=== PATIENT | male | born 1935 | race African-American/Black ===

== ENCOUNTER 2017-03-28 11:35 | Outpatient (CLI) | payer MEDICARE, OTHER ==
[2017-03-28 19:21] LABS: BASOPHILS % (AUTO) 0.7 %; EOSINOPHILS # (AUTO) 0.1 10^3/uL (0.0-0.7); EOSINOPHILS % (AUTO) 1.7 %; HCT - HEMATOCRIT 41.1 % (42.0-52.0); HGB - HEMOGLOBIN 13.4 g/dL (14.0-18.0); LYMPHOCYTES # (AUTO) 1.6 10^3/uL (1.5-3.5); LYMPHOCYTES % (AUTO) 41.8 %; MEAN CORPUSCULAR HGB CONC 32.7 g/dL (32.0-36.0); MEAN CORPUSCULAR VOLUME 76.4 fL (80.0-94.0); MEAN PLATELET VOLUME 9.3 fL (7.4-11.4); MONOCYTES # (AUTO) 0.6 10^3/uL (0.0-1.0); MONOCYTES % (AUTO) 16.2 %; NEUTROPHILS # (AUTO) 1.5 10^3/uL (1.5-6.6); NEUTROPHILS % (AUTO) 39.6 %; NUCLEATED RED BLOOD CELLS AUTO 0.4 /100WBC; RED BLOOD COUNT 5.38 10^6/uL (4.70-6.10); RED CELL DISTRIBUTION WIDTH 16.2 % (12.0-15.0); UNCORRECTED WHITE BLOOD COUNT 3.8 x10^3/uL; WHITE BLOOD COUNT 3.8 x10^3/uL (4.8-10.8)
[2017-03-28 19:46] LABS: ALBUMIN/GLOBULIN RATIO 0.9 (1.0-2.2); BILIRUBIN,TOTAL 0.5 mg/dL (0.2-1.0); CALCIUM 9.3 mg/dL (8.5-10.3); CREATININE 1.6 mg/dL (0.6-1.2); POTASSIUM 4.2 mmol/L (3.5-5.0); TOTAL PROTEIN 7.9 g/dL (6.7-8.2)
[2017-03-28 20:13] LABS: PLATELET ESTIMATE, MANUAL NORMAL (130-450,000) (NORMAL); PLATELET MORPHOLOGY 2+ GIANT PLATELETS (NORMAL)
== END 2017-03-28 11:36 | disposition home or self-care (01) ==
LOC: LAB.WCP 11:35
PROVIDERS: ATTEND Family Medicine
DX: M31.6 Other giant cell arteritis (principal); D36.0 Benign neoplasm of lymph nodes
CPT/HCPCS: 36415; 80053; 85025; 85651

== ENCOUNTER 2018-04-03 08:00 | Outpatient (CLI) | payer MEDICARE, OTHER ==
[2018-04-03 13:06] LABS: BASOPHILS % (AUTO) 1.2 %; EOSINOPHILS % (AUTO) 1.2 %; HGB - HEMOGLOBIN 12.7 g/dL (14.0-18.0); LYMPHOCYTES # (AUTO) 1.5 10^3/uL (1.5-3.5); LYMPHOCYTES % (AUTO) 44.7 %; MEAN CORPUSCULAR HEMOGLOBIN 25.5 pg (27.0-31.0); MEAN CORPUSCULAR HGB CONC 32.7 g/dL (32.0-36.0); MEAN PLATELET VOLUME 9.3 fL (7.4-11.4); MONOCYTES # (AUTO) 0.4 10^3/uL (0.0-1.0); MONOCYTES % (AUTO) 11.6 %; NEUTROPHILS # (AUTO) 1.3 10^3/uL (1.5-6.6); NEUTROPHILS % (AUTO) 41.3 %; PLT - PLATELET COUNT 152 10^3/uL (130-450); RED BLOOD COUNT 4.98 10^6/uL (4.70-6.10); RED CELL DISTRIBUTION WIDTH 17.1 % (12.0-15.0); WHITE BLOOD COUNT 3.3 x10^3/uL (4.8-10.8)
[2018-04-03 13:35] LABS: PLATELET ESTIMATE, MANUAL NORMAL (130-450,000) (NORMAL); PLATELET MORPHOLOGY 1+ GIANT PLATELETS (NORMAL); RBC MORPHOLOGY (MULTIPLE) NORMAL APPEARANCE (NORMAL)
[2018-04-03 14:00] LABS: ALBUMIN 3.4 g/dL (3.2-5.5); ALBUMIN/GLOBULIN RATIO 0.8 (1.0-2.2); ALKALINE PHOSPHATASE 80 IU/L (42-121); ALT ALANINE AMINOTRANSFERASE 14 IU/L (10-60); AST ASPARTATE AMINOTRANSFERASE 23 IU/L (10-42); BILIRUBIN,TOTAL 0.7 mg/dL (0.2-1.0); BUN - BLOOD UREA NITROGEN 23 mg/dL (6-20); CALCIUM 9.2 mg/dL (8.5-10.3); CARBON DIOXIDE - CO2 28 mmol/L (21-32); CHLORIDE 101 mmol/L (101-111); CHOL/HDL RATIO 3.3 (<5.0); CHOLESTEROL 140 mg/dL; CREATININE 1.5 mg/dL (0.6-1.2); GFR - MDRD 55 (>89); GLUCOSE 103 mg/dL (70-100); HDL CHOLESTEROL 43 mg/dL; LDL CHOLESTEROL,CALCULATED 88 mg/dL; SODIUM 133 mmol/L (135-145); TOTAL PROTEIN 7.9 g/dL (6.7-8.2); VLDL CHOLESTEROL 9 mg/dL
[2018-04-03 14:07] LABS: HB2 TOTAL 13.5 g/dL; HEMOGLOBIN A1C 0.59 g/dL; HEMOGLOBIN A1C % 6.1 % (4.6-6.2)
== END 2018-04-03 08:01 | disposition home or self-care (01) ==
LOC: LAB.WCP 08:00
PROVIDERS: ATTEND Family Medicine
DX: I12.9 Hypertensive chronic kidney disease with stage 1 through stage 4 chronic kidney disease, or unspecified chronic kidney disease (principal); N18.3 Chronic kidney disease, stage 3 (moderate); E11.9 Type 2 diabetes mellitus without complications; Z12.5 Encounter for screening for malignant neoplasm of prostate; E78.5 Hyperlipidemia, unspecified
CPT/HCPCS: 36415; 80053; 80061; 82043; 83036; 84443; 85025; G0103; 83721; 84153

== ENCOUNTER 2019-02-07 08:00 | Outpatient (CLI) | payer MEDICARE, OTHER ==
[2019-02-07 14:20] LABS: ALBUMIN 3.6 g/dL (3.2-5.5); ALBUMIN/GLOBULIN RATIO 0.8 (1.0-2.2); BILIRUBIN,TOTAL 0.5 mg/dL (0.2-1.0); CALCIUM 9.5 mg/dL (8.5-10.3); CREATININE 1.6 mg/dL (0.6-1.2); TOTAL PROTEIN 7.9 g/dL (6.7-8.2)
[2019-02-07 14:42] LABS: HB2 TOTAL 12.9 g/dL; HEMOGLOBIN A1C 0.56 g/dL; HEMOGLOBIN A1C % 6.1 % (4.6-6.2)
[2019-02-07 14:53] LABS: CREATININE,URINE 101.7 mg/dL; MICROALBUM/CREATININE RATIO,UR 7.9 ug/mg (<30.0); MICROALBUMIN,URINE 0.8 mg/dL (0-300.0)
== END 2019-02-07 08:01 | disposition home or self-care (01) ==
LOC: LAB.WCP 08:00
PROVIDERS: ATTEND Family Medicine
DX: E11.9 Type 2 diabetes mellitus without complications (principal); E78.5 Hyperlipidemia, unspecified; I10 Essential (primary) hypertension
CPT/HCPCS: 36415; 80053; 82043; 82570; 83036

== ENCOUNTER 2019-08-07 08:00 | Outpatient (CLI) | payer MEDICARE, OTHER ==
[2019-08-07 13:55] LABS: BASOPHILS % (AUTO) 0.8 %; HGB - HEMOGLOBIN 12.1 g/dL (14.0-18.0); LYMPHOCYTES % (AUTO) 56.3 %; MEAN CORPUSCULAR HGB CONC 31.2 g/dL (32.0-36.0); MEAN CORPUSCULAR VOLUME 86.6 fL (80.0-94.0); MONOCYTES % (AUTO) 10.6 %; NEUTROPHILS % (AUTO) 30.3 %; PLT - PLATELET COUNT 124 10^3/uL (130-450); RED BLOOD COUNT 4.48 10^6/uL (4.70-6.10); RED CELL DISTRIBUTION WIDTH 16.7 % (12.0-15.0); WHITE BLOOD COUNT 2.5 x10^3/uL (4.8-10.8)
[2019-08-07 14:05] LABS: ABNORMAL LYMPHS % (MANUAL) 0 %; BAND NEUTROPHILS % (MANUAL) 0 %
[2019-08-07 14:09] LABS: ALBUMIN 3.9 g/dL (3.2-5.5); ALBUMIN/GLOBULIN RATIO 0.9 (1.0-2.2); ALKALINE PHOSPHATASE 69 IU/L (42-121); ALT ALANINE AMINOTRANSFERASE 17 IU/L (10-60); AST ASPARTATE AMINOTRANSFERASE 23 IU/L (10-42); BILIRUBIN,TOTAL 0.4 mg/dL (0.2-1.0); BUN - BLOOD UREA NITROGEN 19 mg/dL (6-20); CALCIUM 9.5 mg/dL (8.5-10.3); CARBON DIOXIDE - CO2 31 mmol/L (21-32); CHLORIDE 102 mmol/L (101-111); CHOL/HDL RATIO 2.9 (<5.0); CHOLESTEROL 128 mg/dL; CREATININE 1.6 mg/dL (0.6-1.2); GFR - MDRD 51 (>89); GLUCOSE 99 mg/dL (70-100); HDL CHOLESTEROL 44 mg/dL; LDL CHOLESTEROL,CALCULATED 75 mg/dL; LDL/HDL RATIO 1.7 (<3.6); SODIUM 139 mmol/L (135-145); TOTAL PROTEIN 8.1 g/dL (6.7-8.2); VLDL CHOLESTEROL 9 mg/dL
[2019-08-07 14:32] LABS: BASOPHILS # (MANUAL) 0.1 10^3/uL (0-0.1); BASOPHILS % (MANUAL) 3 %; LYMPHOCYTES # (MANUAL) 1.4 10^3/uL (1.5-3.5); LYMPHOCYTES % (MANUAL) 52 %; MONOCYTES # (MANUAL) 0.3 10^3/uL (0.0-1.0); PLATELET ESTIMATE, MANUAL NORMAL (130-450,000) (NORMAL); PLATELET MORPHOLOGY NORMAL APPEARANCE (NORMAL); RBC MORPHOLOGY (MULTIPLE) NORMAL APPEARANCE (NORMAL)
[2019-08-07 14:33] LABS: DIFFERENTIAL COMMENT MANUAL DIFFERENTIAL
== END 2019-08-07 23:59 | disposition home or self-care (01) ==
LOC: LAB.WCP 08:00
PROVIDERS: ATTEND Family Medicine
DX: Z00.00 Encounter for general adult medical examination without abnormal findings (principal); E11.22 Type 2 diabetes mellitus with diabetic chronic kidney disease; I12.9 Hypertensive chronic kidney disease with stage 1 through stage 4 chronic kidney disease, or unspecified chronic kidney disease; N18.3 Chronic kidney disease, stage 3 (moderate); E78.9 Disorder of lipoprotein metabolism, unspecified
CPT/HCPCS: 36415; 80053; 80061; 83721; 84443; 85025

== ENCOUNTER 2020-05-14 14:30 | Outpatient (CLI) | payer MEDICARE, OTHER ==
--- NOTE | 2020-05-14 17:48 | CONSULTATION NOTE ---
Palliative Care Consultation - Referral Referring Provider: Dr. Jared Downey Time of Visit: 1805-4624 Referral setting: Home Referral Reason: MDS/Advanced Care Planning - Information Sources Records reviewed: Previous records reviewed History/Review of Systems obtained from: Patient, Family (spouse, Marichuy (underlying vascular dementia); son and DIL via conference call) Exam limitations: No limitations - History of Present Illness Brief History of Present Illness: This is a tayo 84-year-old gentleman seen within his home for initial palliative care consultation due to myelodysplastic syndrome, RAEB1 that is progressing despite treatment and advanced care planning with his , Marichuy present at his request and his son, Josias and [id number], Liliana on conference call. The patient demonstrated signs of pancytopenia beginning in 2016. He had initial consultation with hematology/oncology in July 2019 with a bone marrow biopsy performed that demonstrated leukemic blasts at 5% in July 2019. He was diagnosed with myelodysplastic syndrome, RAEB-1. He initiatated Vidaza therapy on 09/24/2019. He had a repeat bone marrow biopsy performed 02/2020 which demonstrated leukemic blasts at 8% after 6 cycles of treatment indicating progression of his disease. He has been told that the average life expectancy given his increased blasts noted on bone marrow biopsy is approximately 9 months. On last evaluation with oncology his peripheral blood counts did not demonstrate evidence of peripheral blasts and stable mild pancytopenia. He plans to continue with treatment. He has not needed any blood transfusions. After the recent conversation with oncology regarding his prognosis, the patient is grappling with end-of-life concerns and decisions as he reports he feels honestly quite well. He is quite devoted Caring for his disabled who has bilateral below the knee amputations and vascular dementia. He denies any overall fatigue as well as dyspnea on exertion. He is an upbeat individual with a positive outlook on life and continues to move forward with treatment for his MDS but recognizes the need to have a plan in place for both himself and his and has been having discussions with his son regarding future planning. Patient is seen in the master bedroom so that his may be present for the discussion has she is disabled. He is well groomed, no evidence of distress and in good spirits. Medical/Surgical History - Past Medical History Cardiovascular: reports: Hypertension, High cholesterol Respiratory: reports: None Neuro: None Endocrine/Autoimmune: reports: None GI: reports: None : reports: Benign prostate hypertrophy, Other (CKD stage III) Psych: reports: None Musculoskeletal: reports: None Other Past Medical History: MDS, RAEB-1 07/2019 - Substance History Use: Uses substance without health or social issues: NONE (Former tobacco use) Social History - Living Situation Living arrangement: At home Living Situation: With spouse/s.o. Support System: He attended [employer] and managed different operations within the [employer] He has been to his for 59 years. Prior to relocating to [facility] they were in [place]. They have 2 children, 1 daughter and 1 son. They are estranged from their daughter who lives locally. Their son, Josias resides in [place]. He provides the primary caregiving to his disabled who has bilateral BKA and vascular dementia. They have 2 private caregivers from [facility] who attend 5 days a week to assist with caregiving support. Family History - Family History Family History: Mother: , Father: Family History Comment/Other: Noncontributory Medications/Allergies - Medications Home Medications: Ambulatory Orders Medication Instructions Recorded Confirmed Atorvastatin [Lipitor] 10 mg PO QPM 09/21/19 05/06/20 Cholecalciferol (Vitamin D3) 2,000 unit PO DAILY 09/21/19 05/06/20 [Vitamin D3] Finasteride 5 mg PO DAILY 09/21/19 05/06/20 Lisinopril [Zestril] 40 mg PO DAILY 09/21/19 05/06/20 amLODIPine [Norvasc] 10 mg PO DAILY 09/21/19 05/06/20 Ondansetron [Ondansetron Odt] 8 mg PO Q8H PRN 09/24/19 05/06/20 Prochlorperazine Maleate 10 mg PO Q6H PRN 09/24/19 05/06/20 [Compazine] Triamcinolone 0.1% Cream [Kenalog 1 applic TD BID 11/19/19 05/06/20 0.1% Cream] diphenhydrAMINE [Benadryl] 25 mg PO Q4HR PRN 11/19/19 05/06/20 Metoprolol Succinate 100 mg PO DAILY 05/15/20 05/15/20 - Allergies Allergies/Adverse Reactions: Allergies Allergy/AdvReac Type Severity Reaction Status Date / Time No Known Drug Allergies Allergy Verified 05/15/20 08:53 Review of Systems - Constitutional Constitutional: reports: Weight stable (present weight 195lb). denies: Fatigue, Fever, Poor appetite - Eyes Eyes: denies: Vision loss - Ears, Nose & Throat Ears, Nose & Throat: denies: Hearing aids - Cardiovascular Cardiovascular: denies: Chest pain, Edema - Respiratory Respiratory: denies: SOB at rest, SOB with exertion - Gastrointestinal Gastrointestinal: reports: Good appetite. denies: Constipation, Diarrhea, Vomiting - Genitourinary Genitourinary: denies: Dysuria - Musculoskeletal Musculoskeletal: denies: Joint pain, Assistive devices - Integumentary Integumentary: denies: Rash - Neurological Neurological: denies: General weakness - Psychiatric Psychiatric: denies: Depression - Endocrine Endocrine: reports: Diabetes type 2 - Hematologic/Lymphatic Hematologic/Lymphatic: reports: Other (MDS) - All Other Systems All Other Systems: reports: Reviewed and negative Physical Exam - Vital Signs Temperature: 36.6 C Pulse Rate: 67 O2 Saturation: 98 (on RA at rest) Blood Pressure: 115/71 - Physical Exam General Appearance: positive: No acute distress, Alert, Other (well groomed) Eyes Bilateral: positive: Normal inspection ENT: positive: No signs of dehydration Neck: positive: Trachea midline Cardiovascular: positive: Regular rate & rhythm, No murmur Respiratory: positive: No respiratory distress, Breath sounds nml Abdomen: positive: Non-tender, Soft, Nml bowel sounds. negative: Guarding Skin: positive: No symptoms Extremities: positive: No pedal edema, Other (Moves all extremities x 4) Neurologic/Psychiatric: positive: Oriented x3, Mood/affect nml, Other (Engaged and jovial individual) Palliative Care - POLST Patient has POLST: No Pain: No pain Tiredness/Fatigue: None Drowsiness/Sedation: None Nausea: None Anorexia: None Dyspnea: None Depression: None Feelings of wellbeing/Perceived Quality of Life: Excellent Constipation: No Performance Status: Ambulates independently without assistive device. No falls. Attends household duties such as cooking as well as grocery shopping for himself and his . - Palliative Care Discussion: The patient was diagnosed with myelodysplastic syndrome in July 2019. He has tolerated the treatments well and is quite perplexed at the present time as he "feels good" to be told by oncology that he has a prognosis of approximately 9 months given the progression of his disease. He still feels like he has more years in him. He continues to have hope that a miracle might happen so that he may continue to enjoy his time with his beloved , whom he is the primary caregiver. He and his of 59 years are comfortable and stable in their own space. The patient himself gets up every day for the purpose of taking care of his . He does recognize the need to plan for the future so he does not find himself in a crisis, especially in light of the need for caregiving of his who has vascular dementia. The patient's son, Josias, has expressed his desire to have his parents move down to [place] so they may spend quality time together and their care be overseen by the family. Ultimately, the plan is to have the patient's reside with her son upon his and this is agreeable to the patient. However, the patient feels that [facility] is his community and that he is not a number. He feels that [place] [facility] [place] an extension of his family and this would not be present for him and his if they were to relocate at this time to [place]. The patient is open to continue to have discussions with his son about making plans for relocation if he becomes weakened and at a time when he is unable to care for himself as well as his to relocate to [place]. The patient is Adamant that he wishes to remain on [facility] in his home that is comfortable for as long as possible. Having a plan in place will provide ease to both the patient and his son. At the present time, the conversation was left between the patient, his son as well as his [id number] that they will look at transitioning to [place] at a future point if he is unable to care for himself and/or his . The patient himself is always been an optimistic individual. He does believe heavily in his tom and grew up Hinduism. In providing medical information he does not want anyone to "sugar coat it" and to "give it to me straight." He does find that he needs to process information and then move forward with decisions. He plans on fighting until the better end to optimize his time with his . Results - Lab Results Lab results reviewed: Yes Lab and Imaging Results: 05/06/2020: Sodium 138, potassium 4.1, BUN 14, creatinine 1.4, estimated GFR 59, glucose, AST 20, ALT 17, alk phos 74, albumin 4.0, WBC 2.7, H/H 4 0.96/12.6%, platelet 93 Impression and Recommendations - Palliative Care Impression: This is a tayo 84-year-old gentleman with myelodysplastic syndrome, RAEB1 demonstrating progression of his disease with minimal symptom disease burden. He continues with Vidaza therapy with underyling pancytopenia. He continues to need support in processing that MDS is not a curable condition and to partake in advanced care planning for himself as well as his disabled to avoid a potential future crisis. Palliative care to continue to provide support for symptom management, education regarding chronic disease, supportive listening and advance care planning. Recommendations/Counseling Done: 1. Myelodysplastic syndrome, RAEB-1. Recent bone marrow biospy 02/2020 demonstrating a worsening leukemic blast count with demonstration of disease progression. Continues on Vidaza therapy which was intitated on 09/24/2019. Has not required blood transfusions. No reports of symptom burden due to disease presently. To continue to provide support for the patient regarding his prognosis that MDS is progressive and not curable and provide support for symptoms and looking foward towards advanced care planning. To continue to be followed by oncology for management. 2. Advanced Care Planning. The patient is one who is always been an optimistic individual, relies upon his tom and wishes to be a fighter regarding his disease until the end of his life. He is grappling with the knowledge that his MDS is not curable and planning for the future that includes both himself and his disabled , whom he is the primary caregiver for. His son, Josias, as well as his daughter in law, Liliana are very supportive emotionally and desire that patient and his to relocated to [place] to be close to them as well as family. At this time, the patient wishes to remain on [facility] due to his sense of community and support that he has here. A move at this time when he is functional and capable of caring for himself as well as his could potentially cause undue stress. Reviewed the need for advanced care planning. Reviewed DPOA paperwork and provided a blank copy to be completed. Provided a blank POLST as well as "Hard Choices for [place] [employer]" for the patient to review himself and when his son visits next week to discuss at our next visit as the patient wished to have time for reflection. Encouraged the patient and his son to continue to have an open dialogue between them about the patient's desires and needs, but recognizing the importance of safe plan to be inplace in the future to avoid a crisis and all parties are in agreement. Supportive listening provided. Will continue to explore goals of care and assist with future planning with the patient and his family for both himself and his . Offered vice president of development and social work support if needed in the future. Time Spent: F/u 3-4 weeks or prn. Total time spent 105 minutes with greater than 50% of this spent in counseling and coordination of care with patient, spouse, son and DIL; review of palliative philosophy; review of pathophysiology of MDS; supportive listening; examination of patient; and anticipatory guidance. Disclaimer: The chart note was formulated using voice recognition technology and unfortunately sound alike errors may occur.
== END 2020-05-14 14:31 | disposition home or self-care (01) ==
LOC: PC 14:30
PROVIDERS: ATTEND Nurse Practitioner Family
DX: Z51.5 Encounter for palliative care (principal); D46.9 Myelodysplastic syndrome, unspecified; D75.89 Other specified diseases of blood and blood-forming organs; N18.3 Chronic kidney disease, stage 3 (moderate); E11.22 Type 2 diabetes mellitus with diabetic chronic kidney disease; I12.9 Hypertensive chronic kidney disease with stage 1 through stage 4 chronic kidney disease, or unspecified chronic kidney disease; N40.0 Benign prostatic hyperplasia without lower urinary tract symptoms; Z79.899 Other long term (current) drug therapy
CPT/HCPCS: 99345

== ENCOUNTER 2020-06-04 16:23 | Outpatient (CLI) | payer MEDICARE, OTHER ==
--- NOTE | 2020-06-04 16:28 | CONSULTATION NOTE ---
Palliative Care Follow Up - Referral Referring Provider: Dr. Jared Downey Time of Visit: [id number] Referral setting: Home Referral Reason: MDS/Advanced care planning - Information Sources Records reviewed: Previous records reviewed History/Review of Systems obtained from: Patient, Family (spouse Marichuy (underlying vascular dementia) Exam limitations: No limitations - History of Present Illness Update Brief HPI Update: This is a tayo 84-year-old gentleman seen within his home for follow-up regarding myelodysplastic syndrome, RAEB1 and advance care planning with his , Marichuy present. The patient began demonstrating signs of pancytopenia in 2016. He had initial consultation with hematology/oncology in July 2019 with a bone marrow biopsy performed that demonstrated leukemic blasts of 5% in July 2019. He was diagnosed with myelodysplastic syndrome, RAEB1. He initiated Vidaza therapy on 09/24/2019. He had a repeat bone biopsy performed 02/2020 which demonstrated leukemic blast 8% after 6 cycles of treatment which had been indicative of progression of his disease. Recent peripheral blood counts had been trending down that have now stablized at this time. Of note, his insurance did not allow for coverage of venetoclax. He has not required any blood transfusions. The patient is looking to have a repeat bone marrow biopsy in July or early August. Is his peripheral blood counts significantly decline then he would require a bone marrow biopsy prior more immediately. The patient reports that he has lost some weight in the last few months, approximately 4 pounds. He denies a change in appetite or taste. He denies any depressive symptoms. He reports to feeling physically "good." He continues to be the primary caregiver for his . The patient had previously been struggling with advanced care planning and end of life Concerns in regards to both himself and his disabled . The patient and his son had differing views in regards to where we are should continue to receive care. However, after a recent visit that went extremely well the patient's son now recognizes that his parents are doing well and he plans on coming more regularly. This is provided a sense of relief for the patient himself and allows both the patient and his son to continue to have open lines of communication regarding goals moving forward. The patient is seen in his master bedroom so that his may be present for the discussion as she is disabled. He is well groomed, no evidence of distress and in good spirits. Past Medical History: Patient has a past medical history of BPH, CKD stage III, hypertension, hyperlipidemia, MDS RAEB1 diagnosed July 2019, former tobacco use. Social History - Living Situation Living arrangement: At home Living Situation: With spouse/s.o. Support System: The patient has have been for 59 years. They were residing in [place], [place] prior to relocating to [facility]. They have 2 children, 1 son and 1 daughter. They are estranged from their daughter who lives locally. Their son, Josias resides in [place]. Josias's contact number is [phone]. The patient is the primary caregiver to his disabled who has bilateral below the knee amputations and vascular dementia. The patient has 2 private caregivers from [employer] who attend his 5 days a week to assist in caregiving support. Medications/Allergies - Medications Home Medications: Ambulatory Orders Medication Instructions Recorded Confirmed Atorvastatin [Lipitor] 10 mg PO QPM 09/21/19 06/02/20 Cholecalciferol (Vitamin D3) 2,000 unit PO DAILY 09/21/19 06/02/20 [Vitamin D3] Finasteride 5 mg PO DAILY 09/21/19 06/02/20 Lisinopril [Zestril] 40 mg PO DAILY 09/21/19 06/02/20 amLODIPine [Norvasc] 10 mg PO DAILY 09/21/19 06/02/20 Ondansetron [Ondansetron Odt] 8 mg PO Q8H PRN 09/24/19 06/02/20 Prochlorperazine Maleate 10 mg PO Q6H PRN 09/24/19 06/02/20 [Compazine] Triamcinolone 0.1% Cream [Kenalog 1 applic TD BID 11/19/19 06/02/20 0.1% Cream] diphenhydrAMINE [Benadryl] 25 mg PO Q4HR PRN 11/19/19 06/02/20 Metoprolol Succinate 100 mg PO DAILY 05/15/20 06/02/20 - Allergies Allergies/Adverse Reactions: Allergies Allergy/AdvReac Type Severity Reaction Status Date / Time No Known Drug Allergies Allergy Verified 06/02/20 09:46 Review of Systems - Constitutional Constitutional: reports: Weight loss (appx 4lbs over several months). denies: Fatigue, Fever, Poor appetite - Eyes Eyes: denies: Vision loss - Cardiovascular Cardiovascular: denies: Chest pain - Respiratory Respiratory: denies: Cough, Wheezing - Gastrointestinal Gastrointestinal: reports: Good appetite. denies: Constipation, Diarrhea, Nausea - Genitourinary Genitourinary: denies: Dysuria - Musculoskeletal Musculoskeletal: denies: Joint pain - Integumentary Integumentary: reports: Pruritis (locally to abdomen at site of Vidaza in [facility]) - Neurological Neurological: denies: General weakness - Psychiatric Psychiatric: denies: Depression - Endocrine Endocrine: denies: Diabetes type 2 - Hematologic/Lymphatic Hematologic/Lymphatic: reports: Other (MDS) - All Other Systems All Other Systems: reports: Reviewed and negative Physical Exam - Vital Signs Temperature: 36.5 C Pulse Rate: 80 O2 Saturation: 96 (on RA at rest) Blood Pressure: 129/70 (right wrist cuff) - Physical Exam General Appearance: positive: No acute distress, Alert, Other (well groomed) Eyes Bilateral: positive: Normal inspection ENT: positive: No signs of dehydration Neck: positive: Trachea midline Cardiovascular: positive: Regular rate & rhythm, No murmur Respiratory: positive: No respiratory distress, Breath sounds nml. negative: Rales Abdomen: positive: Non-tender, Soft, Nml bowel sounds Skin: positive: Bruising (noted to abdoen at sites of Vidaza injections with reported pruritus) Extremities: positive: No pedal edema Neurologic/Psychiatric: positive: Oriented x3, Mood/affect nml, Other (Engaged and jovial individual) Palliative Care - POLST Patient has POLST: No Pain: No pain Performance Status: Ambulates independently without assistive devices. Attends household duties such as cooking, grocery shopping, gas for the car, and medicine pickup for both himself and his . - Palliative Care Discussion: Patient was diagnosed with myelodysplastic syndrome in July 2019. He con tinues to tolerate the Vidaza treatments. He recently had a downward trend in his peripheral blood counts that have subsequently stabilized. This provides further optimism for the patient in regards to the quantity of time that he has remaining. The patient continues to be optimistic regarding his present therapy as he hopes to "buy more time." He is quite devoted to his of 59 years. He relays that he is thankful for each and every day that he is able to spend with her and wake up. He does recognize that the MDS is not curable but again, remains optimistic that his peripheral blood counts will continue to stabilize and he can be in "a holding pattern" in order to "buy a few more years." The patient himself is quite an optimistic individual and likes to be told directly about any plans. He and his son have been discussing plans moving forward if he were to find that his symptom burden due to progression of his MDS were to result. The patient's at the present time does not wish to relocate to [place] with his to live with his son and family as they are established in this community of [facility] and they see this as "their home." The patient has found recent relief that during the visit with his son, his son is now recognizing that both he and his are being well cared for and that the fears that their son had in regard to their living conditions have been alleviated. Also, now that [facility] has been purchased by [employer] both the patient and his spouse are open to transitioning to [facility] now that it is under new ownership if and when the time comes for a higher level of care. The patient and his prefer to stay in their community and "have the family come to us." The patient also was questioning what disease progression may look like for him in relation to his MDS. He has literature that has been provided to him from [place] [facility] [place]. Also implored him to look at literature on the Internet from the cancer care network. Discussed potential scenarios that may occur with symptom burden and the advancement of MDS if peripheral blood counts continue to decrease that he is at risk for infection and if symptomatic with his blood counts may require a blood transfusion. Relayed, however, that each individual requires and is specific plan of care based on the response and symptomatology. Results - Lab Results Lab results reviewed: Yes Lab and Imaging Results: 06/02/2020 Sodium 138, potassium 4.3, BUN 19, creatinine 1.6, GFR 50, glucose 106, ferritin 50, AST 19, ALT 15, alk phos 71, WBC 3.1, hemoglobin 12.8, hematocrit 40.3%, RDW 18.5, platelets 73 Impression and Recommendations - Palliative Care Impression: This is a tayo 84-year-old gentleman with myelodysplastic syndrome, RAEB1 with recent trending downward peripheral blood counts that have now stabilized. He has minimal to no symptom disease burden. He continues to care for his disabled . He is continue to work on advanced care planning and having open discussions with his son regarding the future to photo avoid a crisis. Palliative care to continue breath support for symptom management, education regarding chronic illness, and advanced care planning. Recommendations/Counseling Done: 1. Localized pruritus due to Vidaza injection. Recommended to patient to gently apply lotion that is non-scented to provide a soothing effect and reduce irrit ation. 2. Myelodysplastic syndrome, RAEB1. Bone marrow biopsy from 02/2020 demonstrated a worsening leukemic blast count of 8%. The patient continues on the Dyazide therapy which was initiated on 09/24/2019 with now improving stabilization of peripheral blood counts. He has not required any blood transfusions. No reports of symptom burden due to disease. Reviewed with the patient regarding disease progression and potential symptom burden for the future with questions answered and addressed. Patient continues to recognize that his prognosis with MDS is progressive and not curable but is optimistic that he may continue to be in a holding pattern with his disease progression to afford him quantity of life. To continue to be followed by oncology for management. 3. Advanced care planning. The patient has always been an optimistic individual. He has found a sense of community on [facility] and feels strongly that he should remain within this community When his disease progresses and to remain with his and partner, Marichuy for as long as possible. After recent visit, the patient's son, recognizes the importance to the patient and his to remain in the community and now that there has been a change in management with [facility] the patient is open to receiving caregiving services at that facility if that were to be needed in the future. The patient has begun filling out his healthcare power of regulatory attorney paperwork and implored him to have 2 witnesses signed the paperwork or to have it notarized by a notary before next follow-up. Patient has looked over a blank POLST and goal is to review POLST at next visit and to have discussion with the patient and his son via teleconference and patient is amenable. Time Spent: Total time spent 60 minutes with greater than 50% of the spent in counseling coordination of care with the patient and spouse, review of pathophysiology of MDS signs and symptoms of potential disease progression, supportive listening, examination of the patient, and anticipatory guidance. Disclaimer: The chart note was formulated using voice recognition technology and unfortunately sound alike errors may occur.
== END 2020-06-04 16:24 | disposition home or self-care (01) ==
LOC: PC 16:23
PROVIDERS: ATTEND Nurse Practitioner Family
DX: Z51.5 Encounter for palliative care (principal); D46.21 Refractory anemia with excess of blasts 1; L29.8 Other pruritus; Z79.899 Other long term (current) drug therapy; Z63.6 Dependent relative needing care at home; Z63.79 Other stressful life events affecting family and household
CPT/HCPCS: 99350

== ENCOUNTER 2020-07-08 15:00 | Outpatient (CLI) | payer MEDICARE, OTHER ==
--- NOTE | 2020-07-08 16:36 | CONSULTATION NOTE ---
Palliative Care Follow Up - Referral Referring Provider: Dr. Jared Downey Time of Visit: Initated 1500 Referral setting: Home Referral Reason: MDS - Information Sources Records reviewed: Previous records reviewed History/Review of Systems obtained from: Patient Exam limitations: No limitations - History of Present Illness Update Brief HPI Update: This is a tayo 84-year-old gentleman seen within his home for follow-up regarding myelodysplastic syndrome, RAEB1 and advance care planning with his , Marichuy present. The patient began demonstrating signs of pancytopenia in 2016. He had initial consultation with hematology, oncology in July 2019 with a bone marrow biopsy performed that demonstrated leukemic blasts of 5% in July 2019. He was diagnosed with myelodysplastic syndrome, RAEB1. He began Vidaza injections 08/2019. He had a repeat bone marrow biopsy performed 02/2020 which demonstrated leukemic blast 8% after 6 cycles of treatment which had been indicative of progression of his disease. Presently, his peripheral blood counts show stable leukopenia with last WBC BC 3.2 and stable thrombocytopenia with platelets 94. He remains without the need for transfusions. The patient received his last Vidaza injection today until his next cycle. He reports local irritation at the site of injection with local itching and a burning sensation that is coming and going. He does have a history of having localized dryness and peeling of his skin on his abdomen after injections and is attempting to maintain moisturization locally. The patient reports he typically has this localized irritation at the end of each cycle. He reports that his weight is holding steady had approximately 190 pounds. He continues to graze frequently throughout the day. He does report that his taste is not "100%" but attributes this to to his chemotherapy. He has completed his healthcare DURABLE POWER OF INSURANCE UNDERWRITER paperwork and has found relief in having this completed. The patient is seen in his bedroom with his , Marichuy present and is calm and relaxed until he gets a burning pain intermittently. He has a cool compress applied to the injection site. Past Medical History: Patient has a past medical history of MDS RAEB1 diagnosed July 2019, former tobacco use, BPH, CKD stage III, hypertension, hyperlipidemia, iron deficiency. Social History - Living Situation Living arrangement: At home Living Situation: With spouse/s.o. Support System: The patient and his have been for 59 years. They were residing in [place], [place] prior to relocating to [facility]. They have 2 children, 1 son and 1 daughter. They are estranged from their daughter who lives locally. Their son, Josias resides in [place]. Josias is the patient's DPOA with contact number [phone]. The patient is the primary caregiver to his disabled who has bilateral below the knee amputations and vascular dementia. He has support from 2 private caregivers from [facility] who attend Tuesday through Tuesday. Medications/Allergies - Medications Home Medications: Ambulatory Orders Medication Instructions Recorded Confirmed Atorvastatin [Lipitor] 10 mg PO QPM 09/21/19 06/30/20 Cholecalciferol (Vitamin D3) 2,000 unit PO DAILY 09/21/19 06/30/20 [Vitamin D3] Finasteride 5 mg PO DAILY 09/21/19 06/30/20 Lisinopril [Zestril] 40 mg PO DAILY 09/21/19 06/30/20 amLODIPine [Norvasc] 10 mg PO DAILY 09/21/19 06/30/20 Ondansetron [Ondansetron Odt] 8 mg PO Q8H PRN 09/24/19 06/30/20 Prochlorperazine Maleate 10 mg PO Q6H PRN 09/24/19 06/30/20 [Compazine] Triamcinolone 0.1% Cream [Kenalog 1 applic TD BID 11/19/19 06/30/20 0.1% Cream] diphenhydrAMINE [Benadryl] 25 mg PO Q4HR PRN 11/19/19 06/30/20 azaCITIDine [Vidaza] 07/08/20 - Allergies Allergies/Adverse Reactions: Allergies Allergy/AdvReac Type Severity Reaction Status Date / Time No Known Drug Allergies Allergy Verified 06/30/20 09:20 Review of Systems - Constitutional Constitutional: reports: Weight loss (recent weight loss has stablized and present weight 190lb). denies: Fatigue, Fever, Poor appetite - Eyes Eyes: denies: Vision loss - Ears, Nose & Throat Ears, Nose & Throat: denies: Dry mouth - Cardiovascular Cardiovascular: denies: Chest pain - Respiratory Respiratory: denies: Cough - Gastrointestinal Gastrointestinal: reports: Good appetite. denies: Constipation, Diarrhea - Genitourinary Genitourinary: denies: Dysuria - Musculoskeletal Musculoskeletal: denies: Joint pain - Integumentary Integumentary: reports: Pruritis (locally to abdomen at site of Vidaza injection) - Neurological Neurological: denies: General weakness - Endocrine Endocrine: denies: Diabetes type 2 - Hematologic/Lymphatic Hematologic/Lymph: Other (MDS) - All Other Systems All Other Systems: reports: Reviewed and negative Physical Exam - Vital Signs Temperature: 36.5 C Pulse Rate: 81 O2 Saturation: 97 (on RA) Blood Pressure: 130/64 (left wrist cuff) - Physical Exam General Appearance: positive: Alert, Other (well groomed, intermittent discomfort with burning sensation at site of injection) Eyes Bilateral: positive: Normal inspection ENT: positive: No signs of dehydration Neck: positive: Trachea midline Cardiovascular: positive: Regular rate & rhythm, No murmur Respiratory: positive: No respiratory distress, Breath sounds nml Abdomen: positive: Non-tender, Soft, Nml bowel sounds Skin: positive: Bruising (noted to abdomen at sites of Vidaza injections with reported pruritus) Extremities: positive: No pedal edema Neurologic/Psychiatric: positive: Oriented x3, Mood/affect nml Palliative Care - POLST Patient has POLST: No Pain: Comment (at injection site of Vidaza today) Drowsiness/Sedation: None Nausea: None Anorexia: None Dyspnea: None Sleep: Sleeps well Performance Status: Able to ambulate independently without assistive devices. Attends to household duties as well as grocery shopping for both himself and his . Is the primary caregiver to his . - Palliative Care Discussion: The patient continues to receive Vidaza injections for his MDS and presently demonstrates stable leukopenia and thrombocytopenia. He continues to not require transfusions due to his MDS. Today, the patient's reports a localized irritation due to his most recent dose injections and is asking for recommendations for management of itching and intermittent burning sensation. The patient has had this in the the past and typically results after a buildup of subsequent injections. He reports that things are going well for him in regards to energy and his weight has stabilized. He has completed his healthcare power of insurance defense attorney paperwork and otherwise to does not wish to address anything further with this palliative care GENOMICS SCIENTIST today. Results - Lab Results Lab results reviewed: Yes Impression and Recommendations - Palliative Care Impression: This is an 84-year-old gentleman with myelodysplastic syndrome, RAEB1 with stable leukopenia and thrombocytopenia. He has minimal to no symptom to him disease burden. He presently has a localized injection site reaction after his most recent the Vidaza injection. He continues to care for his disabled . Palliative care to continue to provide support for symptom management, exploration of goals of care, and advanced care planning. Recommendations/Counseling Done: 1. Localized injection site reaction due to Vidaza. Continue cool compress to site. May apply benadryl gel OTC for cooling effect and anti-histamine response. To reduce reported dryness and peeling of skin after Vidaza injections recommend use of CerVae Cream application daily, gently applied to the abdomen. 2. Myelodysplastic syndrome, RAEB1. Bone marrow biopsy from 02/2020 demonstrated worsening leukemic blast count of 8%. The patient continues on Vidaza injection cycles for 7 days every 4 weeks. His pro peripheral blood cou nts have stabilized. He has not required any blood transfusions. He denies symptom burden due to disease. He is scheduled to have a repeat bone marrow biopsy in early August 2020 and have encourage him to have his son, Josias present for the procedure. To continue to be followed by oncology for management. 3. Advanced care planning. The patient has completed his durable healthcare power of insurance defense attorney paperwork and has listed his son, Josias as first designated healthcare agent and his [id number], Liliana as the backup agent. The patient is looking forward to a visit from his [id number] the first week of July. To continue to explore goals of care and advance care planning which will be most appropriate after the patient's next bone marrow biopsy results for advanced care planning. Supportive listening provided. Time Spent: CPT 08294 Plan of care reviewed with the patient with questions answered and addressed. Patient's son/DPDERREK Ferrara on telephone with no additional questions in regards to management.. Disclaimer: The chart note was formulated using voice recognition technology and unfortunately sound alike errors may occur.
== END 2020-07-08 15:01 | disposition home or self-care (01) ==
LOC: PC 15:00
PROVIDERS: ATTEND Nurse Practitioner Family
DX: Z51.5 Encounter for palliative care (principal); T45.1X5A Adverse effect of antineoplastic and immunosuppressive drugs, initial encounter; L85.3 Xerosis cutis; D46.9 Myelodysplastic syndrome, unspecified; D46.21 Refractory anemia with excess of blasts 1; I12.9 Hypertensive chronic kidney disease with stage 1 through stage 4 chronic kidney disease, or unspecified chronic kidney disease; N18.30 Chronic kidney disease, stage 3 unspecified; Z79.899 Other long term (current) drug therapy; Z87.891 Personal history of nicotine dependence
CPT/HCPCS: 99348

== ENCOUNTER 2020-12-29 13:45 | Outpatient (CLI) | payer MEDICARE, OTHER ==
--- NOTE | 2020-12-29 16:25 | CONSULTATION NOTE ---
Palliative Care Follow Up - Referral Referring Provider: Dr. Jared Downey Time of Visit: 1430-9923 Referral setting: Home Referral Reason: MDS - Information Sources Records reviewed: Previous records reviewed History/Review of Systems obtained from: Patient Exam limitations: No limitations - History of Present Illness Update Brief HPI Update: This is a tayo 85-year-old gentleman who was seen within his home for follow- up regarding myelodysplastic syndrome, RAEB1 underlying chronic kidney disease in the setting of hypertension with his , Marichuy powers. The patient began demonstrating signs of pancytopenia in 2016. He had initial consultation with hematology and oncology in July 2019 with a bone marrow biopsy performed that demonstrated leukemic blasts of 5% in July 2019. He was then diagnosed with myelodysplastic syndrome, RAEB1. He began Vidaza injections 08/2019. He had a repeat bone marrow biopsy performed 02/2020 which demonstrated with leukemic blast 8% after 6 cycles of treatment which had been indicative of progression of his disease. He began receiving IV decitabine since 06/2020 due to a drug shortage of the . His anemia appears to be stable however, he continues to demonstrate thrombocytopenia. Despite his thrombocytopenia he denies any bleeding issues.He is now switched back to by Geoff injections Tuesday through Tuesday every 4 weeks to see if there is an improvement of his platelet counts to be an indefinite treatment. The patient findings the days injections easier as he can come in quickly to have an injection and is back at home to be with his before the caregivers leave. With Vidaza injections he does note itching and peeling locally but finding this tolerable. His weight has been holding steady at approximately 195 pounds per his report. He reports that his appetite is good and he continues to prepare diversified meals for both him and his . He plans on attending the op general purchasing agent later this month for evaluation of potential cataract surgery. He reports intermittent constipation and if this occurs he will utilize senna or MiraLAX "every once in a while." He denies any straining with defecation. Last week he developed some lower extremity edema. He contacted the on-call provider and the edema was symmetric was advised to elevate his lower extremities and obtain compression socks. He has been diligent about elevating his lower extremities and has since purchased some compression socks that are easily to don and doff and he has noted an almost resolution of his lower extremity edema. He denies any chest pain or palpitations. The patient is seen in his bedroom with his , Marichuy powers who is sleeping for much of the conversation. The patient is calm and are reticulate. No evidence of acute distress. Past Medical History: Patient has a past medical history of MDS RAEB1 diagnosed July 2019, former tobacco use, BPH, CKD stage III, hypertension, hyperlipidemia, iron deficiency anemia. Social History - Living Situation Living arrangement: At home Living Situation: With spouse/s.o. Support System: The patient and his have been for 59 years. They were residing in [place], [place] prior to relocating to [facility]. They have 2 children, 1 son and 1 daughter. They are estranged from their daughter who lives locally. Their son, Josias resides in [place]. Josias is the patient's DPOA with contact number [phone]. The patient is the primary caregiver to his disabled who has bilateral below the knee amputations and vascular dementia who recently graduated from [facility]osp[facility] and is followed by palliative care. He has support from 3 private caregivers from [facility] who attend Tuesday through Tuesday. Medications/Allergies - Medications Home Medications: Ambulatory Orders Medication Instructions Recorded Confirmed Atorvastatin [Lipitor] 10 mg PO QPM 09/21/19 12/15/20 Cholecalciferol (Vitamin D3) 2,000 unit PO DAILY 09/21/19 12/15/20 [Vitamin D3] Finasteride 5 mg PO DAILY 09/21/19 12/15/20 Lisinopril [Zestril] 40 mg PO DAILY 09/21/19 12/15/20 amLODIPine [Norvasc] 10 mg PO DAILY 09/21/19 12/15/20 Ondansetron [Ondansetron Odt] 8 mg PO Q8H PRN 09/24/19 12/15/20 Prochlorperazine Maleate 10 mg PO Q6H PRN 09/24/19 12/15/20 [Compazine] Triamcinolone 0.1% Cream [Kenalog 1 applic TD BID 11/19/19 12/15/20 0.1% Cream] diphenhydrAMINE [Benadryl] 25 mg PO Q4HR PRN 11/19/19 12/15/20 - Allergies Allergies/Adverse Reactions: Allergies Allergy/AdvReac Type Severity Reaction Status Date / Time No Known Drug Allergies Allergy Verified 12/30/20 10:50 Review of Systems - Constitutional Constitutional: reports: Weight stable (weight 195lb). denies: Fatigue, Fever, Poor appetite - Eyes Eyes: denies: Blurred vision - Ears, Nose & Throat Ears, Nose & Throat: denies: Hearing aids - Cardiovascular Cardiovascular: reports: Edema (see HPI). denies: Palpitations, Chest pain, Decr. exercise tolerance - Respiratory Respiratory: denies: Cough - Gastrointestinal Gastrointestinal: reports: Good appetite. denies: Constipation (intermittent, but controlled), Diarrhea, Vomiting - Genitourinary Genitourinary: reports: Other (BPH). denies: Dysuria - Musculoskeletal Musculoskeletal: denies: Joint pain, Assistive devices, Transfer issues - Integumentary Integumentary: denies: Rash - Neurological Neurological: denies: General weakness - Psychiatric Psychiatric: denies: Depression - Endocrine Endocrine: denies: Diabetes type 2 - Hematologic/Lymphatic Hematologic/Lymph: reports: Other (MDS) - All Other Systems All Other Systems: reports: Reviewed and negative Physical Exam - Vital Signs Temperature: 36.6 C Pulse Rate: 76 O2 Saturation: 97 (on RA) Blood Pressure: 128/78 (left wrist) - Physical Exam General Appearance: positive: No acute distress, Alert, Other (well grooed) Eyes Bilateral: positive: Normal inspection ENT: positive: No signs of dehydration Neck: positive: No JVD Cardiovascular: positive: Regular rate & rhythm Respiratory: positive: No respiratory distress, Breath sounds nml. negative: Rales Abdomen: positive: Non-tender, Soft, Nml bowel sounds, Other (+round) Skin: positive: No symptoms Extremities: positive: Other (trace pedal edema b/l) Neurologic/Psychiatric: positive: Oriented x3, Mood/affect nml, Other (ambulates steady without an assistive device) Palliative Care - POLST Patient has POLST: No Pain: No pain Tiredness/Fatigue: None Nausea: None Anorexia: None Dyspnea: None Feelings of wellbeing/Perceived Quality of Life: Good Sleep: Sleeps well Constipation: Intermittent constipation (controlled with use of senna and miralax when needed) - Palliative Care Discussion: The patient has transition back to Vidaza injections due to underlying thrombocytopenia. He is a has fortunately not required any transfusions due to his MDS. His need for a bone marrow biopsy is presently on hold until his follow-up with the oncologist Dr. Cuba. The patient is optimistic that when he does indeed require bone marrow biopsy again that he may have it performed here on [facility] versus going to [place] due to distance and the need to return quickly to relieve the caregivers that are with his spouse in the mornings. The patient typically has a local friend who will drive him for the bone marrow biopsies but for ease, it would be most effective if the patient were able to have the procedure performed [place]. The patient himself reports that he is doing quite well. He continues to remain upbeat and strong for his spouse, Marichuy, who is the reason that he gets up every morning. Results - Lab Results Lab results reviewed: Yes Lab and Imaging Results: 12/15/2020 Ferritin 181.3, vitamin B12 of 686, alk phos 73, WBC 2.9, hemoglobin 13.2, hematocrit 41.1, RDW 17.2, platelets 69, AST 19, ALT 16, iron 57, estimated GFR 41, creatinine 1.9, BUN 19, sodium 140, potassium 4.5 Impression and Recommendations - Palliative Care Impression: This is an 85-year-old gentleman with myelodysplastic syndrome, RAEB1 with leukopenia and thrombocytopenia. He continues to have minimal to no symptom burden. He has transition back to Vidaza injection for hopes of improvement of his thrombocytopenia. He continues to be the primary caregiver for his disabled . He has had some recent lower extremity edema that has subsequently improved with nonmedication management. Palliative care to continue provide support for symptom management, explore goals of care, care coordination and advance care planning. Recommendations/Counseling Done: 1. Lower extremity edema, pedal E. Improved. In the setting of chronic kidney disease stage III and hypertension. Patient is on amlodipine and this may be contributing. Discussed with the patient utilization of a low-sodium diet and limiting salt content as this can contribute to edema. Discussed use of alternative flavoring such as Mrs. Abreu. Advised elevating his lower extremities when at rest. Continue use of compression socks. Continue to monitor. 2. Hypertension. Blood pressure remains is in normal range with routine use of amlodipine and lisinopril. No cardiac complaints. Being followed by his new PCP, Dr. Delgado. 3. Myelodysplastic syndrome, R 80 EB1. Continues with leukopenia and thrombocytopenia. No reports of bleeding. Has transitioned back to Vidaza injections which are palliative therapy. The patient has not had a recent bone marrow biopsy which may be pending in the future for restaging and hopefully, [place] He continues to have no symptom burden due to disease. He has not required any transfusions. Continue to be followed by hematology. 4. Advanced care planning. The patient has durable healthcare power of energy attorney in place. Presently, he does not have a POLST. We will need to review as Develop rapport and tease out additional goals of care moving forward. The patient wishes to optimize his time with his spouse as he is her primary caregiver and this gives him purpose and he has great depth of love for her. Supportive listening provided. Total time spent 30 minutes with greater than 50% of this spent in counseling and coordination of care with the patient; examination of patient; review of oncology notes and labs; review of symptom management and anticipatory niki jose luis. Disclaimer: The chart note was formulated using voice recognition technology and unfortunately sound alike errors may occur.
== END 2020-12-29 13:46 | disposition home or self-care (01) ==
LOC: PC 13:45
PROVIDERS: ATTEND Nurse Practitioner Family
DX: Z51.5 Encounter for palliative care (principal); R60.0 Localized edema; I12.9 Hypertensive chronic kidney disease with stage 1 through stage 4 chronic kidney disease, or unspecified chronic kidney disease; N18.30 Chronic kidney disease, stage 3 unspecified; D46.4 Refractory anemia, unspecified; D69.6 Thrombocytopenia, unspecified; D72.819 Decreased white blood cell count, unspecified; Z87.891 Personal history of nicotine dependence; Z79.899 Other long term (current) drug therapy
CPT/HCPCS: 99348

== ENCOUNTER 2021-02-18 12:40 | Outpatient (CLI) | payer MEDICARE, OTHER ==
--- NOTE | 2021-02-18 16:58 | CONSULTATION NOTE ---
Palliative Care Follow Up - Referral Referring Provider: Dr. Jared Downey Time of Visit: [id number] Referral setting: Home Referral Reason: MDS/Advanced Care Planning - Information Sources Records reviewed: Previous records reviewed History/Review of Systems obtained from: Patient, Family (spouse, Marichuy who has vasulcar dementia), Caregiver (Anita) Exam limitations: No limitations - History of Present Illness Update Brief HPI Update: This is a tayo 85-year-old gentleman who was seen within his home for follow- up regarding myelodysplastic syndrome, RAEB1 with his , Marichuy present and his 's caregiver, Anita. And demonstrating signs of pancytopenia in 2017. He had initial consultation with hematology and oncology in July 2019 with a bone marrow biopsy performed that demonstrated leukemic blasts of 5% in July 2019. 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 He began Vidaza injections 08/2019. He had a repeat bone marrow biopsy performed 02/2020 which demonstrated leukemic blast at 8% after [address] which have been in the could have a progression of the disease. He began receiving IV decitabine since 06/2020 due to drug shortage. He switchedback to Vidaza 11/2020 due to IV access issues. He is due for bone marrow biopsy for restaging on 02/23/2021. With by Geoff injections he does note tenderness at the injection site and will have a localized peeling but finds the symptoms are overall tolerable. He has minimal symptom burden. He occasionally reports some nausea but this is managed with Zofran. He reports that his weight is holding steady on his home scale at 198 to 199 pounds. Periodically he does not have an interest in eating will have to force himself to eat. He continues to be his 's primary caregiver. The patient is seen in his bedroom with his , Marichuy and her caregiver, Mackenzie present. The patient is calm and articulate. No evidence of acute distress. Past Medical History: Patient has a past medical history of MDS RAEB1 diagnosed July 2019, former tobacco use, BPH, CKD stage III, hypertension, hyperlipidemia, iron deficiency anemia. Social History - Living Situation Living arrangement: At home Living Situation: With spouse/s.o. Support System: The patient and his have been for 59 years. They were residing in [place], [place] prior to relocating to [facility]. They have 2 children, 1 son and 1 daughter. They are estranged from their daughter who lives locally. Their son, Josias resides in [place]. Josias is the patient's DPOA with contact number [phone]. The patient is the primary caregiver to his disabled who has bilateral below the knee amputations and vascular dementia who graduated from Hospice in November 2020 and is followed by palliative care. He has support from 3 private caregivers from [facility] who attend Tuesday through Tuesday. Medications/Allergies - Medications Home Medications: Ambulatory Orders Medication Instructions Recorded Confirmed Atorvastatin [Lipitor] 10 mg PO QPM 09/21/19 02/09/21 Cholecalciferol (Vitamin D3) 2,000 unit PO DAILY 09/21/19 02/09/21 [Vitamin D3] Finasteride 5 mg PO DAILY 09/21/19 02/09/21 Lisinopril [Zestril] 40 mg PO DAILY 09/21/19 02/09/21 amLODIPine [Norvasc] 10 mg PO DAILY 09/21/19 02/09/21 Ondansetron [Ondansetron Odt] 8 mg PO Q8H PRN 09/24/19 02/09/21 Prochlorperazine Maleate 10 mg PO Q6H PRN 09/24/19 02/09/21 [Compazine] Triamcinolone 0.1% Cream [Kenalog 1 applic TD BID 11/19/19 02/09/21 0.1% Cream] diphenhydrAMINE [Benadryl] 25 mg PO Q4HR PRN 11/19/19 02/09/21 - Allergies Allergies/Adverse Reactions: Allergies Allergy/AdvReac Type Severity Reaction Status Date / Time No Known Drug Allergies Allergy Verified 01/12/21 08:51 Review of Systems - Constitutional Constitutional: reports: Weight stable (weight 198-199lb on home scale). denies: Fatigue, Fever, Poor appetite - Ears, Nose & Throat Ears, Nose & Throat: denies: Dry mouth - Cardiovascular Cardiovascular: denies: Palpitations, Chest pain, Decr. exercise tolerance - Respiratory Respiratory: denies: Cough - Gastrointestinal Gastrointestinal: reports: Nausea (see HPI, intermittent), Good appetite. denies: Constipation, Vomiting - Genitourinary Genitourinary: reports: Other (BPH). denies: Dysuria - Musculoskeletal Musculoskeletal: denies: Assistive devices, Transfer issues - Integumentary Integumentary: denies: Rash - Neurological Neurological: denies: Headache, Memory problems - Endocrine Endocrine: denies: Diabetes type 2 - Hematologic/Lymphatic Hematologic/Lymph: reports: Anemia (due to MDS and chemotherapy), Other (MDS). denies: Bleeding tendencies - All Other Systems All Other Systems: reports: Reviewed and negative Physical Exam - Vital Signs Temperature: 36.6 C Pulse Rate: 77 O2 Saturation: 96 (on RA) Blood Pressure: 122/86 - Physical Exam General Appearance: positive: No acute distress, Alert, Other (well groomed) Eyes Bilateral: positive: Normal inspection ENT: positive: No signs of dehydration Neck: positive: Trachea midline Cardiovascular: positive: Regular rate & rhythm Respiratory: positive: No respiratory distress, Breath sounds nml Abdomen: positive: Non-tender, Soft, Nml bowel sounds, Other (+round) Skin: positive: Other (hyperpigmentation to abdomen secondary to Vidaza injections) Extremities: positive: Pedal edema (trace) Neurologic/Psychiatric: positive: Oriented x3, Mood/affect nml, Other (ambulates steady without an assistive device) Palliative Care - POLST Patient has POLST: No Pain: No pain Constipation: Intermittent constipation Performance Status: Patient remains independent and is the primary caregiver for his spouse. He does not ambulate with any assistive devices. Continent of bowel and bladder. - Palliative Care Discussion: Patient expresses some reservations today regarding his recent oncology appointment in regards to his need for a bone marrow biopsy and potential for disease progression. The patient recognizes that his MDS is not curable and the chemotherapy that he is receiving is palliative in nature however, he continues to grasp onto his hope that he will have a another year. He wishes to continue to spend time with his , whom he is the primary caregiver and is the reason that he gets up every day per his report. The patient is also optimistic that he still have some options for treatment based on the bone marrow biopsy but if he were to have a further decline in options then he is want to rely on his tom for support. He has also been in contact with his son/DPDERREK, Josias and discussion of what has recently transpired. The patient himself also realizes that the initial prognosis he been given was approximately 9 months which she has surpassed that but ultimately wants to achieve as much time as possible. Impression and Recommendations - Palliative Care Impression: This is an 85-year-old -Citizen Of [place] gentleman with myelodysplastic syndrome, RAEB1 with leukopenia and thrombocytopenia. He continues to have minimal to no symptom burden. He remains the primary caregiver for his disabled . He continues to remain hopeful and optimistic regarding his oncological journey maximize on quantity of time. Palliative care to continue to provide support for symptom management, care coordination, exploration regarding goals of care, and advanced care planning. Recommendations/Counseling Done: 1. Localized skin injection reaction due to Vidaza injection. Resolves after Vidaza injections. Does have topical corticosteroid to apply if pruritus. 2. Myelodysplastic syndrome, RAEB1. Continues with leukopenia and thrombocytopenia. No reports of bleeding. He is presently on Vidaza injections which are palliative therapy. The patient has a pending bone marrow biopsy on 02/23 and is meeting with oncology on 03/09. The results of the bone marrow biopsy will guide treatment options moving forward. He has not required any transfusions. He continues to have minimal symptom burden due to disease. Continue to be followed by hematology/oncology. 3. Advance care planning. The patient has a durable healthcare power of attorney general in place as his son, Josias. Presently, he does not have a POLST and this is something to engage in in the future especially in light of bone marrow biopsy results. The patient continues to display hope of increasing quantity of time in the setting of his progressive disease in order to optimize his time with his . We will continue to tease out moving forward continue planning for both the patient and spouse based on disease progression to ensure safe and environment for both parties. Empathetic and supportive listening provided. Total time spent 35 minutes with greater than 50% of the spent in counseling and coordination of care with the patient; examination the patient, review of oncology notes and on review of symptom management and anticipatory guidance. Disclaimer: The chart note was formulated using voice recognition technology and unfortunately sound alike errors may occur.
== END 2021-02-18 12:41 | disposition home or self-care (01) ==
LOC: PC 12:40
PROVIDERS: ATTEND Nurse Practitioner Family
DX: Z51.5 Encounter for palliative care (principal); D46.4 Refractory anemia, unspecified; I12.9 Hypertensive chronic kidney disease with stage 1 through stage 4 chronic kidney disease, or unspecified chronic kidney disease; N18.30 Chronic kidney disease, stage 3 unspecified; Z79.899 Other long term (current) drug therapy; Z87.891 Personal history of nicotine dependence
CPT/HCPCS: 99348

== ENCOUNTER 2021-03-18 09:25 | Outpatient (CLI) | payer MEDICARE, OTHER ==
--- NOTE | 2021-03-18 17:32 | CONSULTATION NOTE ---
Palliative Care Follow Up - Referral Referring Provider: Dr. Jared Downey Time of Visit: [id number] Referral setting: Home Referral Reason: MDS/Ingrown hair - Information Sources Records reviewed: Previous records reviewed History/Review of Systems obtained from: Patient, Family (spouse, Marichuy who has vascular dementia), Caregiver (Anita) Exam limitations: No limitations - History of Present Illness Update Brief HPI Update: This is a tayo 85-year-old gentleman who was seen within his home for follow- up regarding myelodysplastic syndrome, RAEB1 And folliculitis to his right chin with his , Marichuy presents and his 's caregiver, Anita. After demonstrating signs of pancytopenia in 2016 he had initial consultation with hematology and oncology July 2019 with a bone marrow biopsy performed that demonstrated leukemic blasts of 5% in July 2019. 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 He began Vidaza injections 08/2019. He had a repeat bone marrow biopsy performed 02/2020 which demonstrated leukemic blast at 8% after [address] which have been in the could have a progression of the disease. He began receiving IV decitabine since 06/2020 due to drug shortage. He switchedback to Vidaza 11/2020 due to IV access issues. Had a repeat bone marrow biopsy performed on 02/23/2021 that demonstrated leukemic blasts at 5.3% which was an improvement. The patient is optimistic given this noted improvement. He continues to have some mild tenderness at the injection sites due to the son mild pruritus that responds to topical hydrocortisone as well as some skin peeling. He was last seen by his oncologist on 03/16 as he noted some tenderness along the left jawline with a possible abscess due to an ingrown hair. His chemotherapy was placed on hold. He was prescribed a 3-day course of Keflex which she is presently still on. As well as topical antimicrobial ointment. He has been applying the topical antimicrobial ointment 3 times a day. He has had significant improvement with the swelling and the site is no longer tender. He remains afebrile. He continues to be his 's primary caregiver. The patient is seen in his bedroom with his , Marichuy and her caregiver, Anita present. The patient is calm and articulate. No evidence of distress. Past Medical History: Patient has a past medical history of MDS RAEB1 diagnosed July 2019, former tobacco use, BPH, CKD stage III, hypertension, hyperlipidemia, iron deficiency anemia. Social History - Living Situation Living arrangement: At home Living Situation: With spouse/s.o. Support System: The patient and his have been for 59 years. They were residing in [place], [place] prior to relocating to [facility]. They have 2 children, 1 son and 1 daughter. They are estranged from their daughter who lives locally. Their son, Josias resides in [place]. Josias is the patient's DPOA with contact number [phone]. The patient is the primary caregiver to his disabled who has bilateral below the knee amputations and vascular dementia who graduated from Hospice in November 2020 and is followed by palliative care. He has support from 3 private caregivers from [facility] who attend Tuesday through Tuesday. The patient's [id number] is, Liliana is planning to come next month for several weeks. He is looking forward to the visit. 2 years ago, the patient and his attended in [place] at their son's house in March and they greatly enjoyed that visit. Medications/Allergies - Medications Home Medications: Ambulatory Orders Medication Instructions Recorded Confirmed Atorvastatin [Lipitor] 10 mg PO QPM 09/21/19 03/09/21 Cholecalciferol (Vitamin D3) 2,000 unit PO DAILY 09/21/19 03/09/21 [Vitamin D3] Finasteride 5 mg PO DAILY 09/21/19 03/09/21 Lisinopril [Zestril] 40 mg PO DAILY 09/21/19 03/09/21 amLODIPine [Norvasc] 10 mg PO DAILY 09/21/19 03/09/21 Ondansetron [Ondansetron Odt] 8 mg PO Q8H PRN 09/24/19 03/09/21 Prochlorperazine Maleate 10 mg PO Q6H PRN 09/24/19 03/09/21 [Compazine] Triamcinolone 0.1% Cream [Kenalog 1 applic TD BID 11/19/19 03/09/21 0.1% Cream] diphenhydrAMINE [Benadryl] 25 mg PO Q4HR PRN 11/19/19 03/09/21 cephALEXin [Keflex] 500 mg ORAL TID 03/16/21 03/16/21 - Allergies Allergies/Adverse Reactions: Allergies Allergy/AdvReac Type Severity Reaction Status Date / Time No Known Drug Allergies Allergy Verified 03/09/21 13:07 Review of Systems - Constitutional Constitutional: reports: Weight stable (weight 195-196lb on home scale). elizabeth es: Fatigue, Fever, Poor appetite - Eyes Eyes: denies: Irritation - Ears, Nose & Throat Ears, Nose & Throat: denies: Mouth lesions - Cardiovascular Cardiovascular: denies: Chest pain, Edema - Respiratory Respiratory: denies: Cough - Gastrointestinal Gastrointestinal: reports: Good appetite. denies: Constipation, Vomiting - Genitourinary Genitourinary: reports: Other (BPH). denies: Dysuria - Musculoskeletal Musculoskeletal: denies: Joint pain, Assistive devices - Integumentary Integumentary: reports: Other (soft tissue abscess left chin due to ingrown hair) - Neurological Neurological: denies: Memory problems - Psychiatric Psychiatric: denies: Depression - Endocrine Endocrine: denies: Diabetes type 2 - Hematologic/Lymphatic Hematologic/Lymph: reports: Anemia (due to MDS and chemotherapy), Other (MDS) - All Other Systems All Other Systems: reports: Reviewed and negative Physical Exam - Vital Signs Temperature: 36.6 C Pulse Rate: 74 O2 Saturation: 98 (on RA) Blood Pressure: 120/79 (left wrist) - Physical Exam General Appearance: positive: No acute distress, Alert, Other (well groomed) Eyes Bilateral: positive: Normal inspection ENT: positive: No signs of dehydration Neck: positive: Trachea midline. negative: Lymphadenopathy (R), Lymphadenopathy (L) Cardiovascular: positive: Regular rate & rhythm Respiratory: positive: No respiratory distress, Breath sounds nml Abdomen: positive: Non-tender, Soft, Nml bowel sounds, Other (+round) Skin: positive: Other (+hyperpigmentation to abdomen secondary to Vidaza injections with minor peeling; +left lateral chin region skin abcess 2/2 folliculitis appx 1cm in size (significantly decreased per patient) with localized erythema at the margins with no open wound.) Extremities: positive: No pedal edema Neurologic/Psychiatric: positive: Oriented x3, Mood/affect nml, Other (ambulates steady without an assistive device) Palliative Care - POLST Patient has POLST: No Pain: No pain Feelings of wellbeing/Perceived Quality of Life: Good Sleep: Sleeps well Constipation: Managed - Palliative Care Discussion: The patient is optimistic regarding his most recent bone marrow biopsy demonstrating a reduction in the leukemic blasts. He is aware that with his MDS It will "never go away" but he continues to feel well and having his depends on him and their love "keeps him strong." He continues to look for quantity of time as well as quality for as long as possible. He is perfectly amenable to continue with interventions to optimize his time with his and to continue to have repeated bone marrow biopsies as necessary. Discussions have been made with the patient regarding potential for port placement however, the patient prefers the ease of having the injections as he is always quite anxious to return home to be by his side and he does not wish to be tethered to a treatment chair if at all possible. He finds the burdens of the injection versus an infusion outweigh the benefits. The localized soft tissue infection likely due to folliculitis to his left lateral caputo has significantly improved with initiation of oral Keflex. Encourage the patient to complete the antibiotic course and to take with a little bit of food his antibiotic. Recommended continuing utilization of topical triple antibiotic ointment [id number] 3 times daily for 7 days. Reviewed signs and symptoms of progression of infection and when to contact MAC or palliative care provider for additional interventions with understanding verbalized. Results - Lab Results Lab results reviewed: Yes Impression and Recommendations - Palliative Care Impression: This is an 85-year-old -[place] gentleman with myelodysplastic syndrome, RAEB1 with leukopenia and thrombocytopenia. He continues to have minimal to no symptom burden. He remains the primary caregiver for his disabled . He continues to wish to maximize quantity of time most pacifically with his . He has had improvement since initiation of oral antibiotic therapy to the skin abscess/folliculitis to his left lateral chin. Palliative care to continue to provide support for symptom management, care coordination, exploration regarding goals of care and advanced care planning. Recommendations/Counseling Done: 1. Left chin skin abscess/folliculitis due to ingrown hair. Complete Keflex as prescribed and encouraged to take with food to decrease GI upset. Continue utilization of topical [id number] triple antibiotic ointment applied to the site 3 times daily for 7 days. Reviewed signs and symptoms of infection and when to contact MAC or palliative care provider for intervention. Patient verbalized understanding. There has been significant improvement to the site. 2. Myelodysplastic syndrome, RAEB B1. No reports of bleeding. He continues on Vidaza injections which are palliative therapy. The patient is status post bone marrow biopsy on 02/23 with leukemic blasts at 5.3% reduction from previous 8%. He is not required any transfusions. He continues to have minimal symptom burden due to disease. Continue to be followed by hematology/oncology. 3. Advanced care planning. Patient has durable healthcare power of civil attorney in place as his son, Josias. Presently does not have a POLST and this is something to engage in in the future. The patient continues to wish to have quantity of time specifically with his as he is her primary caregiver. He is contemplating visiting his son and [id number] in March in between his Vidaza injections and strongly encouraged to make this journey if this is something that would give him enjoyment and fulfillment regarding his life. Offered to use speak to the patient's son/DPOA, Josias however, this was declined by the patient at this time. Continue to encourage open communication and updates between the son and patient to assist with decision making in the future. Supportive listening provided. Total time spent 45 minutes with greater than 50% of this spent in counseling and coordination of care with patient and caregiver, review of pain and symptom management and anticipatory guidance. Disclaimer: The chart note was formulated using voice recognition technology and unfortunately sound alike errors may occur.
== END 2021-03-18 09:26 | disposition home or self-care (01) ==
LOC: PC 09:25
PROVIDERS: ATTEND Nurse Practitioner Family
DX: Z51.5 Encounter for palliative care (principal); L73.9 Follicular disorder, unspecified; Z87.891 Personal history of nicotine dependence; D46.9 Myelodysplastic syndrome, unspecified; D72.819 Decreased white blood cell count, unspecified; D69.6 Thrombocytopenia, unspecified; Z79.899 Other long term (current) drug therapy
CPT/HCPCS: 99349

== ENCOUNTER 2021-04-22 13:10 | Outpatient (CLI) | payer MEDICARE, OTHER ==
--- NOTE | 2021-04-22 14:27 | CONSULTATION NOTE ---
Palliative Care Follow Up - Referral Referring Provider: Dr. Jared Downey Time of Visit: [id number] Referral setting: Home Referral Reason: MDS/CKD/Advanced Care Planning - Information Sources Records reviewed: Previous records reviewed History/Review of Systems obtained from: Patient Exam limitations: No limitations - History of Present Illness Update Brief HPI Update: This is a tayo 85-year-old gentleman who was seen within his home for follow- up regarding myelodysplastic syndrome, RAEB1 and CKD with advanced care planning. After demonstrating signs of pancytopenia in 2016 he had initial consultation with hematology and oncology July 2019 with a bone marrow biopsy performed that demonstrated leukemic blasts of 5% in July 2019. 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 He began Vidaza injections 08/2019. He had a repeat bone marrow biopsy performed 02/2020 which demonstrated leukemic blast at 8% after [address] which have been in the could have a progression of the disease. He began receiving IV decitabine since 06/2020 due to drug shortage. He switchedback to Vidaza 11/2020 due to IV access issues. Had a repeat bone marrow biopsy performed on 02/23/2021 that demonstrated leukemic blasts at 5.3% which was an improvement. When receiving his injections he has some minor local reaction with itching and skin peeling. Itching typically is in the first 1 to 2 days after initiation of his cycle. He has been applying some Aspercreme to the site as it is soothing. He does have a history of chronic kidney disease stage III with hypertension. His blood pressure remains with an range and he continues to take his antihypertensive medication, lisinopril and amlodipine. He has been encouraged to increase his oral hydration which he has been doing. On 04/20 his creatinine was 1.6 with BUN 23 and estimated GFR of 50. The patient denies any acute concerns today and reports to feeling overall quite well. Well groomed and no evidence of acute distress. Past Medical History: Patient has a past medical history of MDS RAEB1 diagnosed July 2019, former tobacco use, BPH, CKD stage III, hypertension, hyperlipidemia, iron deficiency anemia. Social History - Living Situation Living arrangement: At home Living Situation: With spouse/s.o. Support System: The patient and his have been for 59 years. They were residing in [place], [place] prior to relocating to [facility]. They have 2 children, 1 son and 1 daughter. They are estranged from their daughter who lives locally. Their son, Josias resides in [place]. Josias is the patient's DPOA with contact number [phone]. The patient is the primary caregiver to his disabled who has bilateral below the knee amputations and vascular dementia who graduated from Hospice in November 2020 and is followed by palliative care. He has support from 3 private caregivers from [facility] who attend Tuesday through Tuesday. The patient's [id number], Liliana visited that home and stayed for 2 nights last week from [place]. The patient expresses concerns as his family has not been vaccinated for Covid19 and they honor his request to wear a mask within the home. Medications/Allergies - Medications Home Medications: Ambulatory Orders Medication Instructions Recorded Confirmed Atorvastatin [Lipitor] 10 mg PO QPM 09/21/19 04/20/21 Cholecalciferol (Vitamin D3) 2,000 unit PO DAILY 09/21/19 04/20/21 [Vitamin D3] Finasteride 5 mg PO DAILY 09/21/19 04/20/21 Lisinopril [Zestril] 40 mg PO DAILY 09/21/19 04/20/21 amLODIPine [Norvasc] 10 mg PO DAILY 09/21/19 04/20/21 Ondansetron [Ondansetron Odt] 8 mg PO Q8H PRN 09/24/19 04/20/21 Prochlorperazine Maleate 10 mg PO Q6H PRN 09/24/19 04/20/21 [Compazine] Triamcinolone 0.1% Cream [Kenalog 1 applic TD BID 11/19/19 04/20/21 0.1% Cream] diphenhydrAMINE [Benadryl] 25 mg PO Q4HR PRN 11/19/19 04/20/21 cephALEXin [Keflex] 500 mg ORAL TID 03/16/21 04/20/21 - Allergies Allergies/Adverse Reactions: Allergies Allergy/AdvReac Type Severity Reaction Status Date / Time No Known Drug Allergies Allergy Verified 03/09/21 13:07 Review of Systems - Constitutional Constitutional: reports: Weight stable. denies: Fatigue, Fever, Poor appetite - Eyes Eyes: reports: Other (has cataracts that he will schedule to have extracted around his [facility] schedule for therapy). denies: Blurred vision - Ears, Nose & Throat Ears, Nose & Throat: denies: Hearing loss - Cardiovascular Cardiovascular: denies: Chest pain, Edema - Respiratory Respiratory: denies: Cough - Gastrointestinal Gastrointestinal: reports: Good appetite. denies: Constipation (controlled with intermittent senna use), Vomiting - Genitourinary Genitourinary: reports: Other (BPH). denies: Dysuria - Musculoskeletal Musculoskeletal: denies: Joint pain, Assistive devices - Integumentary Integumentary: reports: Pruritis (after start of Vidaza SQ injections) - Neurological Neurological: denies: Headache, Dizziness, Memory problems - Psychiatric Psychiatric: denies: Depression - Hematologic/Lymphatic Hematologic/Lymph: reports: Anemia (due to MDS and chemotherapy), Other (MDS) - All Other Systems All Other Systems: reports: Reviewed and negative Physical Exam - Vital Signs Temperature: 36.6 C Pulse Rate: 69 O2 Saturation: 98 (on RA) Blood Pressure: 122/60 (left arm) - Physical Exam General Appearance: positive: No acute distress, Alert, Other (well groomed) Eyes Bilateral: positive: Normal inspection ENT: positive: No signs of dehydration Neck: positive: Trachea midline Cardiovascular: positive: Regular rate & rhythm Respiratory: positive: No respiratory distress, Breath sounds nml. negative: Wheezes Abdomen: positive: Non-tender, Soft, Nml bowel sounds, Other (+round) Skin: positive: Other (+hyperpigmentation to abdomen secondary to Vidaza injections with minor peeling) Extremities: positive: No pedal edema Neurologic/Psychiatric: positive: Oriented x3, Mood/affect nml. negative: Weakness Palliative Care - POLST Patient has POLST: No Pain: No pain Nausea: None Anorexia: None Dyspnea: None Depression: None Feelings of wellbeing/Perceived Quality of Life: Good Sleep: Sleeps well Constipation: Managed, Intermittent constipation - Palliative Care Discussion: Patient continues to tolerate his 5-day Geoff in injections. Has been discussed that in the future if this became intolerable then an IV infusion would be possible however, the patient would prefer to avoid given he is the primary caregiver for his disabled at home. He continues to be grateful for the support that he receives at the [facility]. He is aware that his diagnosis of MDS is not curable however, he wishes to be able to maximize and optimize his time with his spouse. He relays that his spouse is the reason that he gets up every morning. He is aware that at some point "the good Lord will make a decision to take me" however, he does not wish this to be for some time. Reintroduced the role of POLST today and patient to review and will further discuss and review at next visit.[facility] DURABLE POWER OF OPHTHALMIC DISPENSER paperwork previously and had designated his son as DPDERREK. Results - Lab Results Lab results reviewed: Yes Lab and Imaging Results: 04/20/20122020 Sodium 140, potassium 4.5, BUN 23, creatinine 1.6, GFR 50, glucose 106, calcium 9.9, WBC 3.4, hemoglobin 13.5, hematocrit 42.2%, RDW 16.4, platelet 124 Impression and Recommendations - Palliative Care Impression: This is an 85-year-old -Polish gentleman with myelodysplastic syndrome, RAEB B1 with thrombocytopenia. He continues to have minimal to no symptom burden. He remains the primary caregiver for his disabled . He has some underlying chronic kidney disease due to hypertension with creatinine typically hovering around 1.4-1.9. Palliative care to continue to provide support for symptom management, care coordination, exploration regarding goals of care and advanced care planning. Recommendations/Counseling Done: 1. Localized injection site reaction due to Vidaza. May use as cream sparingly to site as finds soothing. Has topical corticosteroid cream to utilize for any persistent pruritus. 2. Chronic kidney disease. In the setting of hypertension. Patient's creatinine ranging 1.4-1.9. Baseline appears to be about 1.5-1.7. Continue oral hydration. Reviewed hypertension contributing to chronic kidney disease and importance of having well complete control blood pressure. Continue antihypertensives as prescribed. Avoid nephrotoxic medications. 3. Myelodysplastic syndrome, RAEB1. No reports of bleeding. Continues on Vidaza injections which are palliative therapy. Patient is status post bone marrow biopsy on 02/23 with leukemic blasts of 5.3% reduction from previous 8%. Pending repeat bone marrow biopsy in fall 2020. Has not required any transfusions. He continues to have minimal symptom burden due to disease. Continue to be followed by oncology. 4. Advanced care planning. We reviewed POLST today with patient and to review at next evaluation with patient to look over in the interim time. Patient continues to wish to have quantity of time specifically with his as he is her primary caregiver. Patient has set up durable healthcare power of managing attorney in place as his son, Josias. Assist him taking things day by day. Supportive listening provided. Total time spent 40 minutes with greater than 30% of the spent in counseling and coordination of care with the patient, review of pathophysiology regarding CKD, review of pain and symptom management as well as anticipatory guidance. Disclaimer: The chart note was formulated using voice recognition technology and unfortunately sound alike errors may occur.
== END 2021-04-22 13:11 | disposition home or self-care (01) ==
LOC: PC 13:10
PROVIDERS: ATTEND Nurse Practitioner Family
DX: Z51.5 Encounter for palliative care (principal); L29.8 Other pruritus; T45.1X5D Adverse effect of antineoplastic and immunosuppressive drugs, subsequent encounter; I12.9 Hypertensive chronic kidney disease with stage 1 through stage 4 chronic kidney disease, or unspecified chronic kidney disease; N18.30 Chronic kidney disease, stage 3 unspecified; D46.21 Refractory anemia with excess of blasts 1; D69.6 Thrombocytopenia, unspecified; Z87.891 Personal history of nicotine dependence
CPT/HCPCS: 99349

== ENCOUNTER 2021-05-26 15:10 | Outpatient (CLI) | payer MEDICARE, OTHER ==
--- NOTE | 2021-05-26 19:03 | CONSULTATION NOTE ---
Palliative Care Follow Up - Referral Referring Provider: Dr. Jared Downey Time of Visit: [id number] Referral setting: Home Referral Reason: MDS/Advanced Care Planning - Information Sources Records reviewed: Previous records reviewed History/Review of Systems obtained from: Patient Exam limitations: No limitations - History of Present Illness Update Brief HPI Update: This is a tayo 85-year-old gentleman who was seen within his home for follow- up regarding myelodysplastic syndrome, RAEB1 and CKD with advanced care planning. After demonstrating signs of pancytopenia in 2016 he had initial consultation with hematology and oncology July 2019 with a bone marrow biopsy performed that demonstrated leukemic blasts of 5% in July 2019. 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 He began Vidaza injections 08/2019. He had a repeat bone marrow biopsy performed 02/2020 which demonstrated leukemic blast at 8% after [address] which have been in the could have a progression of the disease. He began receiving IV decitabine since 06/2020 due to drug shortage. He switched back to Vidaza 11/2020 due to IV access issues. Had a repeat bone marrow biopsy performed on 02/23/2021 that demonstrated leukemic blasts at 5.3% which was an improvement. When receiving his injections he has some minor local reaction with itching and skin peeling. Itching typically is in the first 1 to 2 days after initiation of his cycle. He presently has minor peeling and no longer has puritius. He had previously consulted ophthalmology regarding cataract extraction but has reservations given the potential complications and increased personal needs he would shoulder in addition to carrying for his . He presently feels his vision is stable and does not impact his ability to preform tasks. He does have a history of chronic kidney disease stage III with hypertension. His blood pressure remains with an range and he continues to take his antihypertensive medication, lisinopril and amlodipine. He has been encouraged to increase his oral hydration which he has been doing. On 05/11/2021 his creatinine was 1.5 with BUN 20 and estimated GFR of 54. The patient denies any acute concerns today and reports to feeling overall quite well. Well groomed and no evidence of acute distress. Provider wore N95 mask. Past Medical History: Patient has a past medical history of MDS RAEB1 diagnosed July 2019, former tobacco use, BPH, CKD stage III, hypertension, hyperlipidemia, iron deficiency anemia. +COVID-19 vaccine Social History - Living Situation Living arrangement: At home Living Situation: With spouse/s.o. Support System: The patient and his have been for 59 years. They were residing in [place], [place] prior to relocating to [facility]. They have 2 children, 1 son and 1 daughter. They are estranged from their daughter who lives locally. Their son, Josias resides in [place]. Josias is the patient's DPOA with contact number [phone]. The patient is the primary caregiver to his disabled who has bilateral below the knee amputations and vascular dementia who graduated from Hospice in November 2020 and is followed by palliative care. He has support from 3 private caregivers from [facility] who attend Tuesday through Tuesday. The patient has a local friend who assists with driving him to long appointments such as his bone marrow biopsies. Medications/Allergies - Medications Home Medications: Ambulatory Orders Medication Instructions Recorded Confirmed Atorvastatin [Lipitor] 10 mg PO QPM 09/21/19 04/20/21 Cholecalciferol (Vitamin D3) 2,000 unit PO DAILY 09/21/19 04/20/21 [Vitamin D3] Finasteride 5 mg PO DAILY 09/21/19 04/20/21 Lisinopril [Zestril] 40 mg PO DAILY 09/21/19 04/20/21 amLODIPine [Norvasc] 10 mg PO DAILY 09/21/19 04/20/21 Ondansetron [Ondansetron Odt] 8 mg PO Q8H PRN 09/24/19 04/20/21 Prochlorperazine Maleate 10 mg PO Q6H PRN 09/24/19 04/20/21 [Compazine] Triamcinolone 0.1% Cream [Kenalog 1 applic TD BID 11/19/19 04/20/21 0.1% Cream] diphenhydrAMINE [Benadryl] 25 mg PO Q4HR PRN 11/19/19 04/20/21 cephALEXin [Keflex] 500 mg ORAL TID 03/16/21 04/20/21 - Allergies Allergies/Adverse Reactions: Allergies Allergy/AdvReac Type Severity Reaction Status Date / Time No Known Drug Allergies Allergy Verified 03/09/21 13:07 Review of Systems - Constitutional Constitutional: reports: Weight stable (weight hovering 194-195lb per patient report). denies: Fatigue, Fever, Poor appetite - Eyes Eyes: reports: Other (+cataracts, see HPI). denies: Irritation, Blurred vision - Ears, Nose & Throat Ears, Nose & Throat: denies: Hearing aids - Cardiovascular Cardiovascular: denies: Chest pain, Edema - Respiratory Respiratory: denies: SOB at rest - Gastrointestinal Gastrointestinal: reports: Good appetite. denies: Abdominal pain, Constipation (controlled with intermittent senna use), Vomiting - Genitourinary Genitourinary: reports: Other (BPH). denies: Dysuria - Musculoskeletal Musculoskeletal: denies: Assistive devices, Transfer issues - Integumentary Integumentary: denies: Pruritis - Neurological Neurological: denies: Memory problems - Psychiatric Psychiatric: denies: Depression - Hematologic/Lymphatic Hematologic/Lymph: reports: Anemia (due to MDS and chemotherapy), Other (MDS) - All Other Systems All Other Systems: reports: Reviewed and negative Physical Exam - Vital Signs Temperature: 36.6 C Pulse Rate: 72 O2 Saturation: 98 (on RA) Blood Pressure: 120/82 (left wrist) - Physical Exam General Appearance: positive: No acute distress, Alert, Other (well groomed) Eyes Bilateral: positive: Normal inspection ENT: positive: No signs of dehydration Neck: positive: Trachea midline Cardiovascular: positive: Regular rate & rhythm Respiratory: positive: No respiratory distress, Breath sounds nml Abdomen: positive: Non-tender, Soft, Nml bowel sounds, Other (+round) Skin: positive: Other (+hyperpigmentation to abdomen secondary to Vidaza injections with minor peeling and denies puritus) Extremities: positive: No pedal edema Neurologic/Psychiatric: positive: Oriented x3, Mood/affect nml. negative: Weakness Palliative Care - POLST Patient has POLST: Yes POLST Status: DNR, Selective Treatment Pain: No pain Tiredness/Fatigue: None Drowsiness/Sedation: None Nausea: None Anorexia: None Dyspnea: None Depression: None Anxiety: None Feelings of wellbeing/Perceived Quality of Life: Good - Palliative Care Discussion: Recent discussion was had at the [facility] that after his next bone marrow biopsy may require a port and switch to infusions versus injections for palliative chemotherapy. Patient has some trepidation regarding switching to infusions as this would mean a longer length of time away from the patient's spouse whom he is the primary caregiver for. Most of the patient's decisions regarding his own medical management [place] around the care and wellbeing of his spouse whom he is devoted to. He has a pending ophthalmology appointment to further discuss cataract extractions which he is on the fence about moving forward with if it is not necessary and can be postponed. He openly shared today "will I even see the full benefit of having this done With the potential lifespan I have left." Allow the patient to express his concerns regarding potential complications with the cataract extraction and implored him to follow-up with his gravity prospecting observer helper this Tuesday to address these concerns and if not urgent may consider postponing as thoughts of management of the patient's spouse medication, caregiving duties and his own medical appointments causes increased trepidation and anxiety. Normalized the patient's feelings surrounding this. SEBLE completed today as DN AR with selective interventions. The patient was quite clear that he wishes to weigh benefits versus burdens of interventions at the present time to optimize his ability to continue to care for his spouse. If there were to become a point that the burdens outweigh the benefits he would wish to transition to hospice services to have a comfortable and dignified . He has prior experience with hospice services and wishes to have that support for himself in the future when the appropriate time comes. Results - Lab Results Lab results reviewed: Yes Lab and Imaging Results: 05/11/2021 Sodium 141, potassium 4.5, BUN 20, creatinine 1.5, GFR 54, AST 21, ALT 21, alk phos 77, albumin 4.2, WBC 2.3, hemoglobin 13.7, hematocrit 43.1%, RDW 16.8, neutrophil 1, lymphocyte 1 Impression and Recommendations - Palliative Care Impression: This is an 85-year-old -Italian gentleman with myelodysplastic syndrome, RAEB-1 with Minimal to no symptom burden outside of localized injection site reaction. He continues to remain the primary caregiver for his disabled . He has some underlying chronic kidney disease due to hypertension with creatinine typically hovering around 1.4-1.9 and presently 1.5. Palliative care will continue to provide support for symptom management, care coordination, exploration regarding goals of care and advanced care planning. Recommendations/Counseling Done: 1. Myelodysplastic syndrome, RAEB1. No reports of bleeding. Continues on Vidaza does injections which are palliative therapy. Patient is status post bone marrow biopsy on 02/23 with leukemic blasts at 5.3% reduced from previous 8%. Pending repeat bone marrow biopsy in fall 2020. Has not required any transfusions. Continues to have minimal symptom burden due to his disease. Continue to be followed by oncology. 2. Chronic kidney disease. In the setting of hypertension. Patient's creatinine ranging 1.4-1.9. Presently creatinine 1.5. Continue oral hydration. No cardiac complaints. Avoid nephrotoxic medications. Continue antihypertensive medications as prescribed. 3. Cataracts, OU. Patient has pending appointment with gravity prospecting observer helper regarding cataract extraction. Discussed with the patient would expressed concerns to gravity prospecting observer helper regarding moving forward with the procedure given his concerns regarding his ability to care for his postoperatively and management of his treatment with his MDS. Patient wishes to have a determination if this is necessary at the present time or can be postponed until next year. 4. Advanced care planning. Reviewed POLST at length today and completed as DN AR with selective interventions. The patient continues to wish to have quality of time specifically with his as he is her primary caregiver. Much of the patient's decisions revolve around how they would affect his and to his ability to care for her. If patient were to have increased burdens then would consider transition to hospice services at the appropriate time in the future. Supportive and empathetic listening provided.
== END 2021-05-26 15:11 | disposition home or self-care (01) ==
LOC: PC 15:10
PROVIDERS: ATTEND Nurse Practitioner Family
DX: Z51.5 Encounter for palliative care (principal); D46.4 Refractory anemia, unspecified; I12.9 Hypertensive chronic kidney disease with stage 1 through stage 4 chronic kidney disease, or unspecified chronic kidney disease; N18.30 Chronic kidney disease, stage 3 unspecified; H26.9 Unspecified cataract; Z87.891 Personal history of nicotine dependence; Z66 Do not resuscitate
CPT/HCPCS: 99349

== ENCOUNTER 2021-06-26 07:48 | Outpatient (CLI) | payer MEDICARE, OTHER ==
[2021-06-26] MEDS ORDERED: LACTATED RINGERS 1,000 ML IV ONE ×2 (08:23→10:03)
[2021-06-26] MEDS ORDERED: BUFFERED LIDOCAINE 10 ML SYRINGE ONE (08:23)
[2021-06-26 08:49] LABS: PT - PROTHROMBIN TIME 11.6 secs (9.9-12.6)
[2021-06-26 08:57] LABS: PARTIAL THROMBOPLASTIN TIME 31.9 secs (24.9-33.3)
[2021-06-26] MEDS ORDERED: MIDAZOLAM 2 MG/2 ML VIAL ONE (09:03)
[2021-06-26] MEDS ORDERED: fentaNYL 100 MCG/2 ML VIAL ONE (09:03)
[2021-06-26 11:03] VITALS: BP 122/68
--- NOTE | 2021-06-26 13:57 | CT Report ---
PROCEDURE: BONE MARROW BX W/ASPIRATION Sedation analgesia for minutes. INDICATIONS: MDS TECHNIQUE: The indications, alternatives, benefits, risks, and possible complications of the procedure were comm unicated to the patient. Informed written consent from the patient was obtained and placed in the art. Continuous EKG and hemodynamic monitoring was started by trained personnel. For radiation dose reduction, the following was used: automated exposure control, adjustment of mA and/or kV according to patient size. The patient was brought to the CT suite and slaughterer religious ritual spiral CT imaging was performed with localization g rid. The appropriate site for percutaneous access to the biopsy target was marked, was prepped and d raped sterilely, and was infused with local anaesthesia. Under CT guidance, a core biopsy trocar and needle set was advanced to the biopsy target, and specimen(s) were obtained. The trocar and needle were then removed, and the patient was sent for post-procedure monitoring. COMPARISON: None. FINDINGS: Biopsy site: Left posterior iliac wing Needle: Bone biopsy access set and real Number of passes: 2 Medications: 1% lidocaine for local anaesthesia. IV Fentanyl and Versed for conscious sedation for minutes (see nursing record). Complications: None. IMPRESSION: Successful CT-guided biopsy of left posterior iliac wing. Reviewed by: Linwood Cook MD on 06/26/2021 1:56 PM PDT Approved by: Linwood Cook MD on 06/26/2021 1:56 PM PDT Station ID: [id number]
== END 2021-06-26 07:49 | disposition home or self-care (01) ==
LOC: DI 07:48
PROVIDERS: ATTEND Physician Assistant
DX: D46.21 Refractory anemia with excess of blasts 1 (principal)
CPT/HCPCS: 36415; 38222; 77012; 85610; 85730; 88237; 88264; 88280; J7120

== ENCOUNTER 2021-06-30 14:45 | Outpatient (CLI) | payer MEDICARE, OTHER ==
--- NOTE | 2021-06-30 18:01 | CONSULTATION NOTE ---
Palliative Care Follow Up - Referral Referring Provider: Dr. Jared Downey Time of Visit: Initiated 1445 Referral setting: Home Referral Reason: MDS/HTN - Information Sources History/Review of Systems obtained from: Patient, Family (spouse, Marichuy present with advanced dementia) Exam limitations: No limitations - History of Present Illness Update Brief HPI Update: This is a tayo 85-year-old gentleman who was seen within his home for follow- up regarding myelodysplastic syndrome, RAEB1 and CKD with advanced care planning. Provider wore N95 mask. After demonstrating signs of pancytopenia in 2016 he had initial consultation with hematology and oncology July 2019 with a bone marrow biopsy performed that demonstrated leukemic blasts of 5% in July 2019. 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 He began Vidaza injections 08/2019. He had a repeat bone marrow biopsy performed 02/2020 which demonstrated leukemic blast at 8% after [address] much which have been in the could have a progression of the disease. He began receiving IV decitabine since 06/2020 due to drug shortage. He switched back to Vidaza 11/2020 due to IV access issues. Had a repeat bone marrow biopsy performed on 02/23/2021 that demonstrated leukemic blasts at 5.3% which was an improvement. He had a bone marrow biopsy preformed on Tuesday and was able to have it done at [facility] and reports a positive experience and is happy he does not have to [place] and he can return immediately home to his . He is requesting evaluation of the site, of which a new bandaid is in place and denies tenderness or pruritus. He has been without fever. He does have a history of chronic kidney disease stage III with hypertension. His blood pressure remains with an range and he continues to take his antihypertensive medication, lisinopril and amlodipine. He has no concerns regarding his appetite and his last weight was 195.3lb. Well groomed and no evidence of acute distress. Past Medical History: Patient has a past medical history of MDS RAEB1 diagnosed July 2019, former tobacco use, BPH, CKD stage III, hypertension, hyperlipidemia, iron deficiency anemia. +COVID-19 vaccine Social History - Living Situation Living arrangement: At home Living Situation: With spouse/s.o. Support System: The patient and his have been for 59 years. They were residing in [place], [place] prior to relocating to [facility]. They have 2 children, 1 son and 1 daughter. They are estranged from their daughter who live s locally. Their son, Josias resides in [place]. Josias is the patient's DPOA with contact number [phone]. The patient is the primary caregiver to his disabled who has bilateral below the knee amputations and vascular dementia. He has support from 3 private caregivers from [facility] who attend Tuesday through Tuesday. Medications/Allergies - Medications Home Medications: Ambulatory Orders Medication Instructions Recorded Confirmed Atorvastatin [Lipitor] 10 mg PO QPM 09/21/19 06/08/21 Cholecalciferol (Vitamin D3) 2,000 unit PO DAILY 09/21/19 06/08/21 [Vitamin D3] Finasteride 5 mg PO DAILY 09/21/19 06/08/21 Lisinopril [Zestril] 40 mg PO DAILY 09/21/19 06/08/21 amLODIPine [Norvasc] 10 mg PO DAILY 09/21/19 06/08/21 Ondansetron [Ondansetron Odt] 8 mg PO Q8H PRN 09/24/19 06/08/21 Prochlorperazine Maleate 10 mg PO Q6H PRN 09/24/19 06/08/21 [Compazine] Triamcinolone 0.1% Cream [Kenalog 1 applic TD BID 11/19/19 06/08/21 0.1% Cream] azaCITIDine [Vidaza] 100 mg IJ 06/26/21 - Allergies Allergies/Adverse Reactions: Allergies Allergy/AdvReac Type Severity Reaction Status Date / Time No Known Drug Allergies Allergy Verified 03/09/21 13:07 Review of Systems - Constitutional Constitutional: reports: Weight stable (last weight 195.3lb per patient). denies: Fever, Poor appetite - Ears, Nose & Throat Ears, Nose & Throat: denies: Hearing aids - Cardiovascular Cardiovascular: denies: Palpitations, Edema, Decr. exercise tolerance - Respiratory Respiratory: denies: Cough - Gastrointestinal Gastrointestinal: reports: Good appetite. denies: Constipation (controlled with intermittent senna use), Diarrhea, Vomiting - Genitourinary Genitourinary: reports: Other (+BPH). denies: Dysuria - Musculoskeletal Musculoskeletal: denies: Back pain, Assistive devices - Integumentary Integumentary: denies: Pruritis - Neurological Neurological: denies: Headache - Hematologic/Lymphatic Hematologic/Lymph: reports: Anemia (due to MDS and chemotherapy), Other (MDS) - All Other Systems All Other Systems: reports: Reviewed and negative Physical Exam - Vital Signs Temperature: 36.7 C Pulse Rate: 77 O2 Saturation: 98 (on RA) Blood Pressure: 133/82 - Physical Exam General Appearance: positive: No acute distress, Alert, Other (well groomed) ENT: positive: No signs of dehydration Neck: positive: Trachea midline Cardiovascular: positive: Regular rate & rhythm Respiratory: positive: No respiratory distress, Breath sounds nml Abdomen: positive: Non-tender, Soft, Nml bowel sounds, Other (+round). negative: Guarding Skin: positive: Other (Site of bone marrow biopsy to lower back pinprick site with scab formation beginning without surrounding erythema and nontender to palpation without evidence of infection). negative: Rash Extremities: positive: No pedal edema Neurologic/Psychiatric: positive: Oriented x3, Mood/affect nml. negative: Weakness Palliative Care - POLST Patient has POLST: Yes POLST Status: DNR, Selective Treatment Pain: No pain - Palliative Care Discussion: Continues to be doing well functionally. He continues to be overseeing the care of his who has advanced vascular dementia and is her primary caregiver with caregiving support. He is status post a bone marrow biopsy with results pending and he is optimist ic. No discomfort at the biopsy site and continues to tolerate his Vidaza injections. Impression and Recommendations - Palliative Care Impression: This is an 85-year-old -British gentleman with myelodysplastic syndrome, RAEB1 with no symptom burden presently. He continues to remain the primary caregiver to his disabled . He has some underlying chronic kidney disease due to hypertension. Pending results of the marrow biopsy. Palliative care will continue to provide support for symptom management, care coordination and advance care planning. Recommendations/Counseling Done: 1. Myelodysplastic syndrome, RAEB1. No reports of bleeding. Continues on Vidaza does injections which are palliative therapy. Patient is status post bone marrow biopsy on 02/23 with leukemic blasts at 5.3% reduced from previous 8%. Pending bone marrow biopsy results that was preformed on Tuesday. No evid ence of cellulitis at biopsy site. Has not required any transfusions. Continues to have minimal symptom burden due to his disease. Continue to be followed by oncology. 2. Hypertension. Blood pressure remains is in normal range with routine use of amlodipine and lisinopril. No cardiac complaints. Being followed by PCP, Dr. Ingram. 3. Advanced Care Planning. POLST in place as DNR with selective interventions. He remains devoted to his who is disabled due to dementia. Supportive listening provided. CPT 04624 Questions answered and addressed for patient to the best of this provider's ability. Disclaimer: The chart note was formulated using voice recognition technology and unfortunately sound alike errors may occur.
== END 2021-06-30 14:46 | disposition home or self-care (01) ==
LOC: PC 14:45
PROVIDERS: ATTEND Nurse Practitioner Family
DX: Z51.5 Encounter for palliative care (principal); D46.21 Refractory anemia with excess of blasts 1; I12.9 Hypertensive chronic kidney disease with stage 1 through stage 4 chronic kidney disease, or unspecified chronic kidney disease; N18.30 Chronic kidney disease, stage 3 unspecified; D50.9 Iron deficiency anemia, unspecified; D64.81 Anemia due to antineoplastic chemotherapy; D61.1 Drug-induced aplastic anemia; T45.1X5A Adverse effect of antineoplastic and immunosuppressive drugs, initial encounter; N40.0 Benign prostatic hyperplasia without lower urinary tract symptoms; E78.5 Hyperlipidemia, unspecified; Z66 Do not resuscitate; Z79.899 Other long term (current) drug therapy; Z87.891 Personal history of nicotine dependence
CPT/HCPCS: 99348

== ENCOUNTER 2021-08-14 16:00 | Outpatient (CLI) | payer MEDICARE, OTHER ==
--- NOTE | 2021-08-14 19:32 | CONSULTATION NOTE ---
Palliative Care Follow Up - Referral Referring Provider: Dr. Jared Downey Time of Visit: [phone] Referral setting: Home Referral Reason: MDS/Advanced Care Planning - Information Sources Records reviewed: Previous records reviewed History/Review of Systems obtained from: Patient, Family (spouse, Marichuy present with advanced dementia) Exam limitations: No limitations - History of Present Illness Update Brief HPI Update: This is a tayo 85-year-old gentleman who is seen within his home for follow-up regarding myelodysplastic syndrome, RAEB1 with advanced care planning. Provider wore N95 mask. After demonstrating signs of pancytopenia in 2016 he had a initial consultation with hematology oncology in July 2019 with a bone marrow biopsy performed that demonstrated leukemic blasts of 5% in July 2019. 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 He began Vidaza injections in August 2019. Last bone marrow biopsy performed 06/26/2021 demonstrating new cytogenic abnormalities and myeloblast increased by flow to 3.2%. He continues on Vidaza subcutaneous injections for palliative therapy for 7 days every 4 weeks. His most recent lab work demonstrate pancytopenia most specifically with platelet count of 60 on 08/04/2021. The patient himself denies bleeding gums, rectal bleeding, or easy bruising. He continues to report pruritus at his injection sites with skin peeling that resolves after his 7-day treatment course. His focus remains on maintaining healthy and being able to provide the bulk of caregiving for his who lives at home with advanced dementia. Is well groomed and no evidence of acute distress. Past Medical History: Patient has a past medical history of MDS RAEB1 diagnosed July 2019, former tobacco use, BPH, CKD stage III, hypertension, hyperlipidemia, iron deficiency anemia. +COVID-19 vaccine and booster. Social History - Living Situation Living arrangement: At home Living Situation: With spouse/s.o. Support System: The patient and his have been for 59 years. They were residing in [place], [place] prior to relocating to [facility]. They have 2 children, 1 son and 1 daughter. They are estranged from their daughter who lives locally. Their son, Josias resides in [place]. Josias is the patient's DPOA with contact number [phone]. Patient expresses disappointment today that his son was to come recently however, he experienced illness and would not be evaluated by medical professional or tested before travel and therefore due to his vulnerable health as well as the health of his spouse asked that his son cancel his trip. Son Josias is next expected to come for a visit in August 2021. The patient is the primary caregiver to his disabled who has bilateral below the knee amputations and vascular dementia. He has support from 3 private caregivers from [facility] who attend Tuesday through Tuesday. Medications/Allergies - Medications Home Medications: Ambulatory Orders Medication Instructions Recorded Confirmed Atorvastatin [Lipitor] 10 mg PO QPM 09/21/19 06/08/21 Cholecalciferol (Vitamin D3) 2,000 unit PO DAILY 09/21/19 06/08/21 [Vitamin D3] Finasteride 5 mg PO DAILY 09/21/19 06/08/21 Lisinopril [Zestril] 40 mg PO DAILY 09/21/19 06/08/21 amLODIPine [Norvasc] 10 mg PO DAILY 09/21/19 06/08/21 Prochlorperazine Maleate 10 mg PO Q6H PRN 09/24/19 06/08/21 [Compazine] Triamcinolone 0.1% Cream [Kenalog 1 applic TD BID 11/19/19 06/08/21 0.1% Cream] azaCITIDine [Vidaza] 100 mg IJ 06/26/21 ondansetron HCL [Ondansetron HCl] 8 mg PO Q8HR PRN 08/11/21 08/11/21 - Allergies Allergies/Adverse Reactions: Allergies Allergy/AdvReac Type Severity Reaction Status Date / Time No Known Drug Allergies Allergy Verified 03/09/21 13:07 Review of Systems - Constitutional Constitutional: reports: Weight stable. denies: Fatigue, Fever, Poor appetite - Ears, Nose & Throat Ears, Nose & Throat: denies: Hearing loss - Cardiovascular Cardiovascular: denies: Palpitations, Edema, Decr. exercise tolerance - Respiratory Respiratory: denies: Cough, Hemoptysis - Gastrointestinal Gastrointestinal: reports: Good appetite. denies: Constipation, Diarrhea, Vomiting - Genitourinary Genitourinary: reports: Other (+BPH) - Musculoskeletal Musculoskeletal: denies: Assistive devices - Integumentary Integumentary: denies: Pruritis - Neurological Neurological: denies: General weakness - Hematologic/Lymphatic Hematologic/Lymph: reports: Anemia (due to MDS and chemotherapy), Other (MDS) - All Other Systems All Other Systems: reports: Reviewed and negative Physical Exam - Vital Signs Temperature: 36.6 C Pulse Rate: 57 O2 Saturation: 98 (on RA) Blood Pressure: 122/83 - Physical Exam General Appearance: positive: No acute distress, Alert, Other (well groomed) Eyes Bilateral: positive: Normal inspection ENT: positive: No signs of dehydration Neck: positive: Trachea midline Cardiovascular: positive: Regular rate & rhythm Respiratory: positive: No respiratory distress, Breath sounds nml Abdomen: positive: Non-tender, Soft, Nml bowel sounds, Other (+round) Skin: positive: Pruritis (at Vidaza injection sites to abdomen) Extremities: positive: No pedal edema Neurologic/Psychiatric: positive: Oriented x3, Mood/affect nml. negative: Weakness Palliative Care - POLST Patient has POLST: Yes POLST Status: DNR, Selective Treatment Pain: No pain - Palliative Care Discussion: The patient continues to have minimal symptom burden related to his diagnosis of MDS. He is aware of his blood counts related to pancytopenia and is grateful that he has not required any transfusions. He recognizes that that is a potential in the future as his disease course continues to progress but at the present time, is thankful that he has not required any Transfusions. He continues to elect to have Vidaza as a subcutaneous injections versus therapy through an infusion to limit his time away from the home and his spouse whom he is the primary caregiver. He does have support from [employer] caregivers however, he wishes to limit his time away from the home. The patient recognizes that MDS is a chronic, progressive disease and again, he is grateful for the 2 years that he has had through the assistance of his oncologist and nursing staff at the [facility]. He wishes to remain as healthy as possible and Is thoughtful regarding his interactions outside of the home to reduced his risk of infection. He continues to forge ahead and every day is grateful to wake up and be present with his spouse. He continues to wish for longevity for his spouse however, he does express fatigue due to caregiver burden and is hopeful that he may have some additional assistance in the care of his spouse in the evenings. Despite having his grandson locally, given his grandson's schedule with work he is not available to provide additional assistance within the home. Results - Lab Results Lab results reviewed: Yes Lab and Imaging Results: 08/04/2021 WBC 2.7, hemoglobin 13.1, hematocrit 39.9, platelets 60, neutrophil count 1.4 Impression and Recommendations - Palliative Care Impression: This is an 85-year-old -[place] gentleman with myelodysplastic syndrome, RAEB1 with no symptom burden presently. He does have underlying pancytopenia without bleeding and is aware to limit his exposure to prevent infection. He continues to remain the primary caregiver to his disabled . He remains independent of transfusions. Palliative care will continue provide support for symptom management, care coordination and advance care planning. Recommendations/Counseling Done: 1. Myelodysplastic syndrome, RAEB D1. No reports of bleeding. Continues on Vidaza injections which are palliative therapy. Status post bone marrow biopsy on 06/26/2021 showing cytogenic abnormalities of myeloblasts increased by flow from 1.1% to 3.2%. Remains transfusion independent. Continues to have minimal symptom burden due to his disease. Continue to be followed by oncology. 2. Pancytopenia. Discussed to monitor for signs and symptoms of bleeding. Also reviewed precautions related to low white blood cells such as avoiding crowds, frequent handwashing, And watching for signs and symptoms of infection. Provided empathetic and supportive listening regarding patient's son with recent illness and cancellation of a visit to [facility] due to concerns for potential infection risk to patient and his spouse. 3. Skin injection site pruritus. Has topical corticosteroid to apply and reviewed moisturization to reduce pruritus. 4.Caregiver burden and fatigue. Patient remains primary caregiver to his disabled who has advanced dementia. He is supported by [employer] program and will look in to additional caregivers for [employer] qualifications if able through the social work case manager. Encourage the patient to continue to have movements to himself for regrouping and self-care. Supportive and empathetic listening provided. 5. Advanced care planning. POLST in place as DN AR with selective interventions. He remains devoted to his who is disabled due to dementia. He continues to rely heavily on his tom and optimism to forge ahead. Total time spent 30 minutes with greater than 50% of the spent in counseling and coordination of care with the patient; supportive and empathetic listening; examination of patient; and advance care planning. Disclaimer: The chart note was formulated using voice recognition technology and unfortunately sound alike errors may occur.
== END 2021-08-14 16:01 | disposition home or self-care (01) ==
LOC: PC 16:00
PROVIDERS: ATTEND Nurse Practitioner Family
DX: Z51.5 Encounter for palliative care (principal); D61.818 Other pancytopenia; D46.4 Refractory anemia, unspecified; L29.9 Pruritus, unspecified; Z87.891 Personal history of nicotine dependence; Z66 Do not resuscitate
CPT/HCPCS: 99348

== ENCOUNTER 2021-10-09 15:00 | Outpatient (CLI) | payer MEDICARE, OTHER ==
--- NOTE | 2021-10-09 17:48 | CONSULTATION NOTE ---
Palliative Care Follow Up - Referral Referring Provider: Dr. Jared Downey Time of Visit: [phone] Referral setting: Home Referral Reason: MDS/Weight loss/ACP - Information Sources Records reviewed: Previous records reviewed History/Review of Systems obtained from: Patient Exam limitations: No limitations - History of Present Illness Update Brief HPI Update: This is a tayo 85-year-old gentleman who is seen within his home for follow-up regarding myelodysplastic syndrome, RAEB1 with advanced care planning. Provider wore N95 mask. After demonstrating signs of pancytopenia in 2016 he had initial consultation with hematology in July 2019 with a bone marrow biopsy performed that demonstrated leukemic blasts of 5% in July 2019. He was diagnosed with mild dysplastic syndrome RAEB1. He began Vidaza days injections in August 2019. Last bone marrow biopsy performed 06/26/2021 demonstrating new cytogenic abnormalities and myoblastic increased by flow to 3.2%. He is scheduled to have a bone marrow biopsy later this month on 10/26. He continues on palliative Vidaza injections 7 days every 4 weeks. A cycle of Vidaza was held due to ANC of 0.6 and platelets 47K. He continues to demonstrate pancytopenia and has been without signs and symptoms of infection. He is on prophylactic therapy with acyclovir 400 mg twice daily. Patient notes that he has lost 1 to 2 pounds recently. He is now down to 193 pounds. He reports that he is eating 3 meals per day however, he has lost a taste for the food and is forcing himself to eat. He is also noting some increased fatigue during his weeks of 5 days a injections. He does find it helpful that there is a rn hospice present to sit with his to allow him to have some time to rest. He continues to be the primary caregiver for his spouse who is on hospice. They do have support for a few hours 6 days/week. They remain alone on Sundays. The patient continues to be robust in his IADLs. He was recently seen and evaluated by his primary care provider. The patient reports that there was no changes to his medications and he was evaluated for diabetes mellitus with a normal hemoglobin A1c. Upon review A1c obtained on 10/05 demonstrated A1c of 5.9%. Overall, the patient perceives that he is doing well. He relays that he has slo wed down but still remains very capable. He is seen well groomed and no evidence of acute distress. Past Medical History: Patient has a past medical history of MDS RAEB1 diagnosed July 2019, former tobacco use, BPH, CKD stage III, hypertension, hyperlipidemia, iron deficiency anemia, COVID-19 vaccine and booster. Social History - Living Situation Living arrangement: At home Living Situation: With spouse/s.o. Support System: Patient and will be for 61 years on 10/14/2021. They resided in [facility] prior to relocating to [facility]. They have 2 children, 1 son and 1 daughter. They're estranged from their daughter who resides locally. Their son Josias, resides in [place]. Josias is the patient's DPOA with contact number [phone]. Josias was just up visiting and assisting with storage and moving boxes in the basement for the patient and spouse. He plans on coming to [facility] every 2 to 3 months to provide support. The patient is a primary caregiver to his disabled who has bilateral below the knee amputations and vascular dementia and is presently on hospice services. He has support from 3 private caregivers from [facility] who attend Tuesday through Tuesday for several hours in the morning. Therefore, the patient prefers to have any of his medical treatments and appointments in the morning so he will be present and provide caregiving duties to his spouse in the afternoons. Medications/Allergies - Medications Home Medications: Ambulatory Orders Medication Instructions Recorded Confirmed Atorvastatin [Lipitor] 10 mg PO QPM 09/21/19 09/28/21 Cholecalciferol (Vitamin D3) 2,000 unit PO DAILY 09/21/19 09/28/21 [Vitamin D3] Finasteride 5 mg PO DAILY 09/21/19 09/28/21 Lisinopril [Zestril] 40 mg PO DAILY 09/21/19 09/28/21 amLODIPine [Norvasc] 10 mg PO DAILY 09/21/19 09/28/21 Prochlorperazine Maleate 10 mg PO Q6H PRN 09/24/19 09/28/21 [Compazine] Triamcinolone 0.1% Cream [Kenalog 1 applic TD BID 11/19/19 09/28/21 0.1% Cream] azaCITIDine [Vidaza] 100 mg IJ PRN PRN 06/26/21 ondansetron HCL [Ondansetron HCl] 8 mg PO Q8HR PRN 08/11/21 09/28/21 Acyclovir 400 mg PO BID 10/11/21 10/11/21 - Allergies Allergies/Adverse Reactions: Allergies Allergy/AdvReac Type Severity Reaction Status Date / Time No Known Drug Allergies Allergy Verified 09/28/21 09:15 Review of Systems - Constitutional Constitutional: reports: Fatigue (taking naps during weeks of Vidaza injections), Weight loss (1-2 lbs weight loss to appx 193lb per patient report). denies: Fever - Eyes Eyes: reports: Other (+cataracts). denies: Blurred vision - Ears, Nose & Throat Ears, Nose & Throat: denies: Sore throat, Dry mouth - Cardiovascular Cardiovascular: denies: Palpitations, Edema, Decr. exercise tolerance - Respiratory Respiratory: denies: Cough - Gastrointestinal Gastrointestinal: reports: Nausea (intermittent and responds to zofran), Other (Decreased taste for food but continues to consume 3 meals per day). denies: Constipation (intermittently will use Senna), Diarrhea, Vomiting, Early satiety - Genitourinary Genitourinary: reports: Other (+BPH) - Musculoskeletal Musculoskeletal: denies: Assistive devices - Integumentary Integumentary: reports: Pruritis (localized at injection site of abdomen) - Neurological Neurological: denies: Memory problems - Psychiatric Psychiatric: denies: Depression - Endocrine Endocrine: denies: Diabetes type 2 (HgA1C 5.9% on 10/05/2021) - Hematologic/Lymphatic Hematologic/Lymph: reports: Anemia (due to MDS and chemotherapy), Other (MDS) - All Other Systems All Other Systems: reports: Reviewed and negative Physical Exam - Vital Signs Temperature: 36.6 C Pulse Rate: 81 O2 Saturation: 96 (on RA) Blood Pressure: 112/75 (left wrist) - Physical Exam General Appearance: positive: No acute distress, Alert, Other (well groomed) Eyes Bilateral: positive: Normal inspection ENT: positive: No signs of dehydration Neck: positive: Trachea midline Cardiovascular: positive: Regular rate & rhythm Respiratory: positive: No respiratory distress, Breath sounds nml. negative: Rales Abdomen: positive: Non-tender, Soft, Nml bowel sounds, Other (+round) Skin: positive: Pruritis (at Vidaza injection sites to abdomen) Extremities: positive: No pedal edema Neurologic/Psychiatric: positive: Oriented x3, Mood/affect nml. negative: Weakness Palliative Care - POLST Patient has POLST: Yes POLST Status: DNR, Selective Treatment Pain: No pain Tiredness/Fatigue: Moderate (4-6) (after Vidaza injections) Drowsiness/Sedation: None Nausea: Mild (1-3) Anorexia: Mild (1-3), Weight loss (mild) Dyspnea: None Depression: None Anxiety: None Feelings of wellbeing/Perceived Quality of Life: Good Sleep: Sleeps well Constipation: No - Palliative Care Discussion: Patient is having some increased symptomatology related to his MDS most specific for some mild weight loss and fatigue surrounding his Vidaza injections. He is presently on prophylactic therapy with acyclovir and the reasoning for the addition of acyclovir was reviewed at length today with the patient with understanding verbalized for infection prophylaxis. The patient recognizes that MDS is a chronic, progressive disease and he is grateful that he has remained transfusion independence and without events due to his pancytopenia. He reports that if disease progresses he is not side or freed. He wishes to extend his life given his priority surrounds his spouse who is presently on hospice services. He has a pending bone marrow biopsy at the end of the month and this will provide additional assistance regarding continuation of conversations regarding advanced care planning. Results - Lab Results Lab results reviewed: Yes Lab and Imaging Results: 10/05/2021 WBC 1.9, hemoglobin 11.8, hematocrit 36.2%, RDW 17.5, platelet 102, neutrophil 0.5 Hemoglobin A1c 5.9% Impression and Recommendations - Palliative Care Impression: This is an 85-year-old -[place] gentleman with myelodysplastic syndrome, RAEB1 with Mild symptom burden related to fatigue during Vidaza injections and pancytopenia. He continues to remain independent of transfusions. He has a primary caregiver to his disabled who is on hospice services. Palliative care will continue to provide support for symptom management, care coordination and advance care planning. Recommendations/Counseling Done: 1. Myelodysplastic syndrome, RAEB E 801. No reports of bleeding. Continues on Vidaza injections which are palliative therapy. Status post bone marrow biopsy on 06/26/2021 showing cytogenic abnormalities of myeloblasts increased by flow from 1.1% to 3.2%. Pending bone marrow biopsy on 10/26 and will follow with results. Remains transfusion independent. Per oncology treatment threshold is approximately platelet greater than 50 K and ANC greater than 0.8 Continues to be followed by oncology. 2. Fatigue. Increased during the week of Vidaza injections and in the setting of the patient being the primary caregiver for his disabled who is on hospice services. Discussed taking naps and performing energy conservation. Continue to monitor. 3. Pancytopenia. Continue to monitor for signs and symptoms of bleeding. Continue precautions such as avoiding crowds and frequent handwashing and watching for signs and symptoms of infection. Continues on acyclovir for infection prophylaxis. 4. Advanced care planning. Remains with a strong desire to live given he is the primary caregiver for his disabled who is presently on hospice services. His treatment times revolve around when there are caregiving support within the home to monitor his spouse. Supportive and empathetic listening provided. Total time spent 40 minutes with greater than 50% of the spent in counseling cor onation of care with the patient; review of recent lab work; review of pathophysiology of underlying MDS; supportive and empathetic listening; examination of patient; advance care planning. Disclaimer: The chart note was formulated using voice recognition technology and unfortunately sound alike errors may occur.
== END 2021-10-09 15:01 | disposition home or self-care (01) ==
LOC: PC 15:00
PROVIDERS: ATTEND Nurse Practitioner Family
DX: Z51.5 Encounter for palliative care (principal); D61.818 Other pancytopenia; D46.4 Refractory anemia, unspecified; R53.83 Other fatigue; Z87.891 Personal history of nicotine dependence; Z66 Do not resuscitate
CPT/HCPCS: 99349

== ENCOUNTER 2021-10-22 08:11 | Outpatient (CLI) | payer MEDICARE, OTHER ==
[2021-10-22] MEDS ORDERED: lidocaine 1% 20 ML MDV ONE (08:38)
[2021-10-22] MEDS ORDERED: LACTATED RINGERS 1,000 ML IV ONE (08:53)
[2021-10-22] MEDS ORDERED: MIDAZOLAM 2 MG/2 ML VIAL ONE (09:07)
[2021-10-22] MEDS ORDERED: fentaNYL 100 MCG/2 ML VIAL ONE (09:08)
[2021-10-22 09:35] LABS: INR 1.1 (0.8-1.2); PT - PROTHROMBIN TIME 12.5 secs (9.9-12.6)
[2021-10-22 09:43] LABS: PARTIAL THROMBOPLASTIN TIME 32.6 secs (24.9-33.3)
[2021-10-22] MEDS ORDERED: LACTATED RINGERS 800 ML IV ONE (10:55)
[2021-10-22 12:02] VITALS: BP 118/76
[2021-10-22] MEDS ORDERED: lidocaine 1% 20 ML MDV SUBQ ONE (13:30)
--- NOTE | 2021-10-22 15:13 | CT Report ---
PROCEDURE: BONE MARROW BX W/ASPIRATION Sedation analgesia for 30 minutes. INDICATIONS: MDS TECHNIQUE: The indications, alternatives, benefits, risks, and possible complications of the procedure were comm unicated to the patient. Informed written consent from the patient was obtained and placed in the art. Continuous EKG and hemodynamic monitoring was started by trained personnel. For radiation dose reduction, the following was used: automated exposure control, adjustment of mA and/or kV according to patient size. The patient was brought to the CT suite and computer mechanic spiral CT imaging was performed with localization g rid. The appropriate site for percutaneous access to the biopsy target was marked, was prepped and d raped sterilely, and was infused with local anaesthesia. Under CT guidance, a core biopsy trocar and needle set was advanced to the biopsy target. Bone marrow aspirate and bone marrow biopsy specimen( s) were obtained. The trocar and needle were then removed, and the patient was sent for post-procedu re monitoring. COMPARISON: None. FINDINGS: Biopsy site: Right iliac Needle: 19 gauge biopsy needle with introducer trocar. Number of passes: 1 Medications: 1% lidocaine for local anaesthesia. IV Fentanyl and Versed for conscious sedation for 30 minutes (see nursing record). Complications: None. IMPRESSION: Successful CT-guided bone marrow biopsy Reviewed by: Deja Don MD on 10/22/2021 3:12 PM PST Approved by: Deja Don MD on 10/22/2021 3:12 PM PST Station ID: [id number]
== END 2021-10-22 08:12 | disposition home or self-care (01) ==
LOC: DI 08:11
PROVIDERS: ATTEND Physician Assistant
DX: D46.Z Other myelodysplastic syndromes (principal)
CPT/HCPCS: 36415; 38222; 77012; 85610; 85730; J7120

== ENCOUNTER 2021-11-05 15:05 | Outpatient (CLI) | payer MEDICARE, OTHER ==
--- NOTE | 2021-11-05 18:56 | CONSULTATION NOTE ---
Palliative Care Follow Up - Referral Referring Provider: Dr. Jared Downey Time of Visit: [id number] Referral setting: Home Referral Reason: MDS/ACP - Information Sources Records reviewed: Previous records reviewed History/Review of Systems obtained from: Patient Exam limitations: No limitations - History of Present Illness Update Brief HPI Update: This is a tayo 85-year-old gentleman who was seen within his home for follow- up regarding myelodysplastic syndrome, RA EB1 with advancing disease with advanced care planning. Provider wore N95 mask. The patient began demonstrating signs of pancytopenia in 2016 and he had initial consultation with hematology in July 2019 with a bone marrow biopsy performed that demonstrated leukemic blast of 5% in July 2019. He was diagnosed with mild low dysplastic syndrome RAEB1. He began Vidaza injections in August 2019. Most recent bone marrow biopsy performed 10/22/2021 demonstrating persistent myelodysplastic syndrome with excessive blasts with 8% myeloblasts. Also with 10% myeloid blasts after lysis indicating further disease progression. He continues on palliative Vidaza injections 7 days every 4 weeks. His last cycle of Vidaza was held due to platelets at 30 3K. He continues to be without signs and symptoms of infection. He is on prophylactic therapy with acyclovir 400 mg twice daily. The patient reports having increased fatigue and feeling down after hearing about his most recent bone marrow biopsy. Reports that his son Josias, was pre sent during the phone call regarding most recent biopsy results. He reports that his weight is holding steady and his appetite is stable however, he does perceive that he has had to slow down but is still able to move forward. He continues to be the primary caregiver who is his spouse who is on hospice. They do have support for a few hours 6 days/week but are alone on Sundays. Past Medical History: Patient has a past medical history of MDS RAEB1 diagnosed July 2019, former tobacco use, BPH, CKD stage III, hypertension, hyperlipidemia, iron deficiency anemia, pre Diabetes Mellitus, COVID-19 vaccine and booster. Social History - Living Situation Living arrangement: At home Living Situation: With spouse/s.o. Support System: Patient and will be for 61 years on 10/14/2021. They resided in [facility] prior to relocating to [facility]. They have 2 children, 1 son and 1 daughter. They're estranged from their daughter who resides locally. Their son Josias, resides in [place]. Josias is the patient's DPOA with contact number [phone]. The patient is a primary caregiver to his disabled who has bilateral below the knee amputations and vascular dementia and is presently on hospice services. He has support from 3 private caregivers from [facility] who attend Tuesday through Tuesday for several hours in the morning. Therefore, the patient prefers to have any of his medical treatments and appointments in the morning so he will be present and provide caregiving duties to his spouse in the afternoons. Plans on working on his living trust as he does not want to wait till last minute to have everything in order. Medications/Allergies - Medications Home Medications: Ambulatory Orders Medication Instructions Recorded Confirmed Atorvastatin [Lipitor] 10 mg PO QPM 09/21/19 11/02/21 Cholecalciferol (Vitamin D3) 2,000 unit PO DAILY 09/21/19 11/02/21 [Vitamin D3] Finasteride 5 mg PO DAILY 09/21/19 11/02/21 Lisinopril [Zestril] 40 mg PO DAILY 09/21/19 11/02/21 amLODIPine [Norvasc] 10 mg PO DAILY 09/21/19 11/02/21 Prochlorperazine Maleate 10 mg PO Q6H PRN 09/24/19 11/02/21 [Compazine] Triamcinolone 0.1% Cream [Kenalog 1 applic TD BID 11/19/19 11/02/21 0.1% Cream] azaCITIDine [Vidaza] 100 mg IJ PRN PRN 06/26/21 11/02/21 ondansetron HCL [Ondansetron HCl] 8 mg PO Q8HR PRN 08/11/21 11/02/21 Acyclovir 400 mg PO BID #180 tab 11/09/21 - Allergies Allergies/Adverse Reactions: Allergies Allergy/AdvReac Type Severity Reaction Status Date / Time No Known Drug Allergies Allergy Verified 09/28/21 09:15 Review of Systems - Constitutional Constitutional: reports: Fatigue, Weight loss. denies: Fever - Eyes Eyes: reports: Other (+cataracts) - Ears, Nose & Throat Ears, Nose & Throat: denies: Dentures - Cardiovascular Cardiovascular: denies: Palpitations, Edema - Respiratory Respiratory: denies: Cough - Gastrointestinal Gastrointestinal: reports: Good appetite. denies: Abdominal pain, Constipation (if needed he will use senna) - Genitourinary Genitourinary: reports: Other (+BPH). denies: Dysuria - Musculoskeletal Musculoskeletal: denies: Assistive devices - Integumentary Integumentary: reports: Pruritis (at injection sites) - Neurological Neurological: reports: General weakness. denies: Headache - Endocrine Endocrine: reports: Other (pre- DM) - Hematologic/Lymphatic Hematologic/Lymph: reports: Anemia (due to MDS and chemotherapy), Other (MDS) - All Other Systems All Other Systems: reports: Reviewed and negative Physical Exam - Vital Signs Temperature: 36.8 C Pulse Rate: 78 O2 Saturation: 97 (on RA) Blood Pressure: 105/70 - Physical Exam General Appearance: positive: No acute distress, Alert, Other (well groomed) Eyes Bilateral: positive: Normal inspection ENT: positive: No signs of dehydration Neck: positive: Trachea midline Cardiovascular: positive: Regular rate & rhythm Respiratory: positive: No respiratory distress, Breath sounds nml Abdomen: positive: Non-tender, Soft, Nml bowel sounds, Other (+round) Skin: positive: Dryness Extremities: positive: No pedal edema Neurologic/Psychiatric: positive: Oriented x3, Other (Appropriately reflectful today regarding recent news of bone marrow biopsy results). negative: Weakness Palliative Care - POLST Patient has POLST: Yes POLST Status: DNR, Selective Treatment Pain: No pain Sleep: Sleeps well Constipation: Intermittent constipation - Palliative Care Discussion: After her most recent biopsy results patient has been feeling down and scared. He is afraid of not being present for his who is relying upon him. He recently met another patient with MDS who is giving him hope regarding longevity. He is thinking forward about increments of time in order to get to the next goal. He does acknowledge that potential timeline he was previously given was 9 months to 2 years and he has now had the 2-year marlen. He felt that the news regarding disease progression was unexpected this week and therefore he needed time to process and adjust next steps. Since he has not had time to process he feels that he is ready to put "my arm or back on an fight." He wishes to be able to make it to next September where he and his will be for 62 years. He continues to focus primarily on his spouse and perform tasks for her to optimize her comfort. He drowns out the "what if's" and continues to put 1 foot in front of the other. His son, Josias who is the patient's DPOA, and has been made aware of recent changes with the bone marrow biopsy results and is tapped in. Impression and Recommendations - Palliative Care Impression: This is an 85-year-old -[place] gentleman with myelodysplastic syndrome, RAEB1 with mild symptom burden related to fatigue during Vidaza injections and pancytopenia. He continues to remain independent of transfusions however, most recent bone marrow biopsy indicates disease progression. He has a primary caregiver for his disabled who is on hospice services. Palliative care will continue to provide support for symptom management, care coordination and advance care planning. Recommendations/Counseling Done: 1. Myelodysplastic syndrome, RAEB1. No reports of bleeding. Continues on Vidaza injections which are palliative therapy. Is status post bone marrow biopsy on 10/22/2021. Remains transfusion independent. Continues to be followed by oncology. 2. Fatigue. Is increased during the week of I does a injections in the setting of the patient being the primary caregiver for his disabled who is on hospice services. Recommendations made to allow palliative care volunteer to provide assistance and support and patient is amenable to this referral. 3. Pancytopenia. Continue to monitor for signs or symptoms of bleeding. Continue precautions such as avoiding crowds and frequent handwashing and watching for signs and symptoms of infection. Continues on acyclovir for infection prophylaxis. 4. Caregiver burden. Patient remains the primary caregiver of his disabled who is on hospice services. Has a support from the hospice team and caregivers through [facility]. foster care [facility]. 5. Advanced care planning. Patient continues to have a strong desire to live given he is the primary caregiver for his disabled who is on hospice services. He recognizes that his treatment is palliative however, he wishes to "keep fighting" and have a plan moving forward for management and longevity for as long as he can to spend time with his spouse. Supportive and empathetic listening provided. Total time spent 50 minutes with greater than 50% of the spent in counseling and coronation of care with the patient; review of recent lab work; review of pathophysiology of underlying MDS; suggestions regarding self-care; supportive listening; examination of patient; and advance care planning. Disclaimer: The chart note was formulated using voice recognition technology and unfortunately sound alike errors may occur.
== END 2021-11-05 15:06 | disposition home or self-care (01) ==
LOC: PC 15:05
PROVIDERS: ATTEND Nurse Practitioner Family
DX: Z51.5 Encounter for palliative care (principal); D46.9 Myelodysplastic syndrome, unspecified; R53.83 Other fatigue; D61.818 Other pancytopenia; Z66 Do not resuscitate; Z87.891 Personal history of nicotine dependence; D64.81 Anemia due to antineoplastic chemotherapy; T45.1X5A Adverse effect of antineoplastic and immunosuppressive drugs, initial encounter
CPT/HCPCS: 99349

== ENCOUNTER 2021-12-03 15:05 | Outpatient (CLI) | payer MEDICARE, OTHER ==
--- NOTE | 2021-12-03 17:27 | CONSULTATION NOTE ---
Palliative Care Follow Up - Referral Referring Provider: Dr. Jared Downey Time of Visit: [id number] Referral setting: Home Referral Reason: URI symptoms/MDS - Information Sources Records reviewed: Previous records reviewed History/Review of Systems obtained from: Patient Exam limitations: No limitations - History of Present Illness Update Brief HPI Update: This is an 86-year-old gentleman who was seen within his home for follow-up regarding myelodysplastic syndrome, RA EB1 with advancing disease and now with congestion symptoms. Provider wore N95 mask. The patient reports that he began with cough, congestion, and sneezing on Tuesday. He continues to have a runny nose and intermittent cough. He denies cough keeping him up at night. He reports the sneezing is significantly better. He denies shortness of breath, change in appetite, and sleeping well. He denies any sick contacts that he is aware of. His grandson and great grandson did present for his birthday for a visit and both are on vaccinated for Covid19. The patient himself has been vaccinated and boosted for Covid19. He has been checking his temperature 3 times a day and denies a fever. This morning, his temperature was 97.6. His spouse, who is presently on hospice services has not had any cold-like symptoms. The patient has at home Covid19 test within the home but has been fearful to take a test for fear of a positive result. He is presently on palliative Vidaza injections 7 days every 4 weeks. He is scheduled to have his next cycle begin on Tuesday. He was diagnosed with mild myelodysplastic syndrome RAEB1 in July 2019 and began Vidaza injections in August 2021. Past Medical History: Patient has a past medical history of MDS RAEB1 diagnosed July 2019, former tobacco use, BPH, CKD stage III, hypertension, hyperlipidemia, iron deficiency anemia, pre Diabetes Mellitus, COVID-19 vaccine and booster. Social History - Living Situation Living arrangement: At home Living Situation: With spouse/s.o. Support System: Patient and will be for 61 years on 10/14/2021. They resided in [facility] prior to relocating to [facility]. They have 2 children, 1 son and 1 daughter. They're estranged from their daughter who resides locally. Their son Josias, resides in [place]. Josias is the patient's DPOA with contact number [phone]. The patient is a primary caregiver to his disabled who has bilateral below the knee amputations and vascular dementia and is presently on hospice services. He has support from 3 private caregivers from [facility] who attend Tuesday through Tuesday for several hours in the morning. Requested Palliative Care Volunteer for patient. Medications/Allergies - Medications Home Medications: Ambulatory Orders Medication Instructions Recorded Confirmed Atorvastatin [Lipitor] 10 mg PO QPM 09/21/19 11/02/21 Cholecalciferol (Vitamin D3) 2,000 unit PO DAILY 09/21/19 11/02/21 [Vitamin D3] Finasteride 5 mg PO DAILY 09/21/19 11/02/21 Lisinopril [Zestril] 40 mg PO DAILY 09/21/19 11/02/21 amLODIPine [Norvasc] 10 mg PO DAILY 09/21/19 11/02/21 Prochlorperazine Maleate 10 mg PO Q6H PRN 09/24/19 11/02/21 [Compazine] Triamcinolone 0.1% Cream [Kenalog 1 applic TD BID 11/19/19 11/02/21 0.1% Cream] azaCITIDine [Vidaza] 100 mg IJ PRN PRN 06/26/21 11/02/21 ondansetron HCL [Ondansetron HCl] 8 mg PO Q8HR PRN 08/11/21 11/02/21 Acyclovir 400 mg PO BID #180 tab 11/09/21 - Allergies Allergies/Adverse Reactions: Allergies Allergy/AdvReac Type Severity Reaction Status Date / Time No Known Drug Allergies Allergy Verified 09/28/21 09:15 Review of Systems - Constitutional Constitutional: reports: Fatigue, Weight loss. denies: Fever, Chills, Poor appetite - Eyes Eyes: reports: Other (+cataracts) - Ears, Nose & Throat Ears, Nose & Throat: reports: Nasal congestion, Other (+sneezing). denies: N kathryn pain, Sore throat - Cardiovascular Cardiovascular: denies: Palpitations, Edema - Respiratory Respiratory: reports: Cough (improved, non productive). denies: Sputum production, Wheezing, SOB at rest, SOB with exertion - Gastrointestinal Gastrointestinal: reports: Good appetite. denies: Constipation, Diarrhea - Genitourinary Genitourinary: reports: Other (+BPH). denies: Dysuria - Musculoskeletal Musculoskeletal: denies: Assistive devices - Neurological Neurological: denies: Headache, Dizziness - Hematologic/Lymphatic Hematologic/Lymph: reports: Anemia (due to MDS and chemotherapy), Other (MDS) - All Other Systems All Other Systems: reports: Reviewed and negative Physical Exam - Vital Signs Temperature: 36.4 C Pulse Rate: 83 O2 Saturation: 97 (on RA) Blood Pressure: 133/63 - Physical Exam General Appearance: positive: No acute distress, Alert Eyes Bilateral: positive: Normal inspection ENT: positive: ENT inspection nml, No signs of dehydration, Other (+clear rhinorrhea; slightly boggy turbinates b/l; sinuses nontender to palpation) Neck: positive: Trachea midline Cardiovascular: positive: Regular rate & rhythm Respiratory: positive: No respiratory distress, Breath sounds nml. negative: Rales Abdomen: positive: Non-tender, Soft, Nml bowel sounds Extremities: positive: No pedal edema Neurologic/Psychiatric: positive: Oriented x3, Mood/affect nml Comments/Other: [facility] COVID-19 test preformed and was + for COVID-19 after 15 minutes Palliative Care - POLST Patient has POLST: Yes POLST Status: DNR, Selective Treatment Pain: No pain - Palliative Care Discussion: Patient is very diligent about protection when leaving the home from Covid19 wearing his mask, good hygiene, and limiting exposure to others. He did however, have exposure to unvaccinated family members who did not display any signs or symptoms of any infection. Unfortunately, with his underlying congestion, cough, although possible for URI given incidence of Covid19 and the patient's receivable of chemotherapy and underlying MDS performed in-home Covid19 test that was strongly positive. Reviewed with results with the bel ent who was stricken with worry and despite his mild symptoms and overall improvement that he would maybe have to leave his . Reassurance provided and discussed signs and symptoms would warrant emergency department visit and to perform symptom management him in the home. Spouse is without any symptoms. Contacted [facility] vamp cut out worker and spoke to Bella to update regarding Covid19+ status and patient stated it was a injections to be on hold at the beginning of next week given his positive Covid19 status. He was also educated that he needs to quarantine for the next 5 days from positive status. Results - Lab Results Lab results reviewed: Yes Lab and Imaging Results: [facility] COVID-19 test: positive in home Impression and Recommendations - Palliative Care Impression: This is an 86-year-old -[place] gentleman with mild dysplastic syndrome, RA EB1 with mild symptom burden related to the dosage injections and pancytopenia. Today, reported possible URI symptoms that then tested positive for Covid19 within the home. Symptoms are mild for Covid19. Reviewed supportive care. Vidaza injections beginning of next week or to be held. Palliative care will continue to provide support for symptom management, care coordination and advance care planning. Recommendations/Counseling Done: 1. Covid19+ with home test today. Patient with URI-like symptoms such as a positive for Covid19. Mild. Improving. Advised may utilize [id number] guaifenesin for cough if needed. Also made recommendations for saline nasal spray to use 3 to 4 sprays in each nostril twice a day for nasal congestion. Contacted [facility] nurse to update in oncology clinic regarding patient's Covid positive status and his Vidaza injection to be held on Tuesday with oncology nurse to call for status update on Tuesday. Also requested that oncologist, Dr. Downey be made aware and will also reach out to contact Dr. Doe to update him. Discussed with patient that he needs to quarantine for 5 days in the house. [facility] hospice was notified that patient is positive for Covid19 given the patient spouse is on hospice services. Also advised the patient to make caregivers aware of his positive Covid status. Supportive and empathetic listening provided. Both reviewed that it is symptom management and to stay hydrated. No evidence of hypoxia. Reviewed signs and symptoms that would warrant emergency department evaluation such as febrile temperature, shortness of breath, etc. Understanding verbalized. 2. Myelodysplastic syndrome, RAEB EB1. No reports of bleeding. Is presently on Vidaza injections which are palliative therapy. Status post bone marrow biopsy on 10/22/2021. Remains transfusion independent. Followed by oncology. 3. Pancytopenia. Continue to monitor for signs or symptoms of bleeding. Continue precautions such as avoiding crowds and frequent handwashing and signs and symptoms of infection. Please see [facility]19 for further details. Continues on acyclovir for infection prophylaxis. Total time spent 60 minutes with greater than 50% is spent in counseling and coordination of care with the patient; review of Covid19 contracture and exposure as well as quarantine status; review of symptom management of Covid19 symptoms; supportive and empathetic listening; and advance care planning. [id number] contacted emergency twisting department end finder, Dr. Jl Olivarez regarding potential options for treatment for the patient given his comorbidities and age. He is presently in the window to receive Paxlovid if he presents to the emergency department this evening for treatment. After discussion with Dr. Olivarez contacted the patient and presented option however, the patient is unable to leave his spouse independently given her underlying dementia and dependency on him as her caregiver. Patient reports that prior to this [employer] calling in follow-up he had been taking a nap and has not had any coughs or shortness of breath and is appreciative of the follow-up and will continue to take precautions. Disclaimer: The chart note was formulated using voice recognition technology and unfortunately sound alike errors may occur.
== END 2021-12-03 15:06 | disposition home or self-care (01) ==
LOC: PC 15:05
PROVIDERS: ATTEND Nurse Practitioner Family
DX: Z51.5 Encounter for palliative care (principal); U07.1 COVID-19; D46.9 Myelodysplastic syndrome, unspecified; D61.818 Other pancytopenia; Z66 Do not resuscitate; Z87.891 Personal history of nicotine dependence; N40.0 Benign prostatic hyperplasia without lower urinary tract symptoms
CPT/HCPCS: 99350

== ENCOUNTER 2022-01-27 08:28 | Outpatient (CLI) | payer MEDICARE, OTHER ==
--- NOTE | 2022-01-27 10:04 | Ultrasound Report ---
PROCEDURE: Duplex Ext Veins Bilateral INDICATIONS: JAROCHO GARCIA TECHNIQUE: Real-time imaging, as well as color and pulse Doppler interrogation, were performed of the deep veins of both legs from the inguinal ligament to the popliteal fossa. COMPARISON: None FINDINGS: The deep veins are normally compressible, and free of intraluminal thrombus. Color and pu lse Doppler demonstrate normal phasic intravascular flow. There is normal augmentation response to d istal compression maneuver. A right popliteal cyst is noted measures 1.9 x 0.9 x 1.6 cm in size and does not appears to be commun icating with the right knee joint. IMPRESSION: No evidence of DVT in visualized bilateral lower extremity veins. 1.9 x 0.9 x 1.6 mm popliteal cyst is noted in right knee and does not appear to be communicating with joint space. Reviewed by: Venancio Galaviz MD on 01/27/2022 10:02 AM PDT Approved by: Venancio Galaviz MD on 01/27/2022 10:02 AM PDT Station ID: [id number]
== END 2022-01-27 08:29 | disposition home or self-care (01) ==
LOC: DI 08:28
PROVIDERS: ATTEND Registered Nurse
DX: M71.21 Synovial cyst of popliteal space [Baker], right knee (principal); R22.42 Localized swelling, mass and lump, left lower limb; L53.9 Erythematous condition, unspecified
CPT/HCPCS: 93970

== ENCOUNTER 2022-10-11 07:04 | Outpatient (CLI) | payer MEDICARE ==
[2022-10-11 07:49] LABS: INR 1.1 (0.8-1.2); PT - PROTHROMBIN TIME 12.4 secs (9.9-12.6)
[2022-10-11 07:56] LABS: PARTIAL THROMBOPLASTIN TIME 39.4 secs (24.9-33.3)
[2022-10-11] MEDS ORDERED: MIDAZOLAM 2 MG/2 ML VIAL ONE (08:05)
[2022-10-11] MEDS ORDERED: fentaNYL 100 MCG/2 ML VIAL ONE (08:05)
[2022-10-11] MEDS ORDERED: LACTATED RINGERS 1,000 ML IV ONE (09:30)
[2022-10-11 10:39] VITALS: BP 119/62
[2022-10-11] MEDS ORDERED: fentaNYL 100 MCG/2 ML VIAL IVP PRN (11:11)
[2022-10-11] MEDS ORDERED: MIDAZOLAM 2 MG/2 ML VIAL IVP ONE (12:00)
--- NOTE | 2022-10-11 14:44 | CT Report ---
PROCEDURE: BONE MARROW BX W/ASPIRATION INDICATIONS: PANCYTOPENIA TECHNIQUE: The indications, alternatives, benefits, risks, and possible complications of the procedure were comm unicated to the patient. Informed written consent from the patient was obtained and placed in the art. Continuous EKG and hemodynamic monitoring was started by trained personnel. For radiation dose reduction, the following was used: automated exposure control, adjustment of mA and/or kV according to patient size. The patient was brought to the CT suite and enamel shader spiral CT imaging was performed with localization g rid. The appropriate site for percutaneous access to the biopsy target was marked, was prepped and d raped sterilely, and was infused with local anaesthesia. Under CT guidance, a core biopsy trocar and needle set was advanced to the biopsy target, and specimen(s) were obtained. The trocar and needle were then removed, and the patient was sent for post-procedure monitoring. COMPARISON: None. FINDINGS: Biopsy site: Right posterior superior iliac crest Needle: 14 gauge biopsy needle with introducer trocar. Number of passes: One core biopsy one aspirin. Medications: 1% lidocaine for local anaesthesia. IV Fentanyl and Versed for conscious sedation for approximately 10 minutes (see nursing record). Complications: None. IMPRESSION: Successful CT-guided bone marrow biopsy. Reviewed by: Jake Ferris MD on 10/11/2022 2:43 PM PST Approved by: Jake Ferris MD on 10/11/2022 2:43 PM PST Station ID: [id number]
== END 2022-10-11 07:05 | disposition home or self-care (01) ==
LOC: DI 07:04
PROVIDERS: ATTEND Internal Medicine Hematology & Oncology
DX: D46.21 Refractory anemia with excess of blasts 1 (principal)
CPT/HCPCS: 36415; 38222; 85610; 85730; J7120